=== PATIENT | female | born 1965 | race Caucasian/White ===

== ENCOUNTER → 2017-10-20 | Outpatient (CLI) | payer OTHER ==
[~2017-10-20] MED LIST: ALBU90OI INH; AZIT250 PO; Desyrel50 MG; FLUSAL1005; HYDGUAL120 PO; METTREX2.5; NYSTRITC TOP; ONDA8 PO; Pedi-Dri 100,0060 GM; SERT50; STELARA90 MG/1 ML; [UNRECOGNIZED DRUG - OTHER]
== END | disposition home or self-care (01) ==
LOC: PLD 07:36 → LAB SHORT 07:36
DX: N95.0 Postmenopausal bleeding (principal); Z85.42 Personal history of malignant neoplasm of other parts of uterus; C52 Malignant neoplasm of vagina
CPT/HCPCS: 88305; 88341; 88342

== ENCOUNTER → 2017-10-20 | Outpatient (CLI) | payer OTHER ==
[2017-10-22 13:58] LABS: HPV Genotype 16 Not Detected (NOTDET); HPV Genotype 18 Not Detected (NOTDET)
[2017-10-27 11:17] LABS: HPV High Risk Other Not Detected (NOTDET)
== END | disposition home or self-care (01) ==
LOC: LAB 14:12
PROVIDERS: Obstetrics & Gynecology
DX: Z01.419 Encounter for gynecological examination (general) (routine) without abnormal findings (principal)
CPT/HCPCS: 87624; G0123

== ENCOUNTER 2017-11-03 11:46 | Day surgery (SDC) | payer OTHER ==
[~2017-11-03] VITALS: Ht 157.5 cm; Wt 119.7 kg
[~2017-11-03 11:46] MED LIST changes: -NYSTRITC TOP; -ONDA8 PO
== END 2017-11-03 13:49 | disposition home or self-care (01) ==
LOC: ORSCSDS 11:46
PROVIDERS: Internal Medicine Gastroenterology
PROC: 0DBL8ZX Excision of Transverse Colon, Via Natural or Artificial Opening Endoscopic, Diagnostic (ICD-10-PCS; principal; 2017-11-03 13:00)
PROC: 3E0H8GC Introduction of Other Therapeutic Substance into Lower GI, Via Natural or Artificial Opening Endoscopic (ICD-10-PCS; principal; 2017-11-03 13:00)
PROC: 0DBM8ZX Excision of Descending Colon, Via Natural or Artificial Opening Endoscopic, Diagnostic (ICD-10-PCS; principal; 2017-11-03 13:00)
PROC: 0DBH8ZX Excision of Cecum, Via Natural or Artificial Opening Endoscopic, Diagnostic (ICD-10-PCS; principal; 2017-11-03 13:00)
DX: R10.32 Left lower quadrant pain (principal); K63.5 Polyp of colon; D12.0 Benign neoplasm of cecum; D12.3 Benign neoplasm of transverse colon; K57.30 Diverticulosis of large intestine without perforation or abscess without bleeding; K64.8 Other hemorrhoids; E66.01 Morbid (severe) obesity due to excess calories; Z68.42 Body mass index [BMI] 45.0-49.9, adult; Z79.899 Other long term (current) drug therapy
CPT/HCPCS: 88305; J7120

== ENCOUNTER → 2018-02-02 | Outpatient (CLI) | payer OTHER ==
[2018-02-02 12:54] LABS: Source, Urine Clean Catch
[2018-02-02 13:15] LABS: Bilirubin, Urine Neg (Neg); Blood, Urine 1+ (Neg); Glucose Qualitative, Urine Neg (Neg); Ketones, Urine Neg (Neg); Leukocyte Esterase, Urine 3+ (Neg); Nitrite, Urine Neg (Neg); Protein, Urine 2+ (Neg); Urobilinogen, Urine 1+ (Normal)
[2018-02-02 13:24] LABS: Appearance, Urine Cloudy (Clear); Color, Urine Yellow (P-Yellow); White Blood Cells, Urine 50-100 /hpf (0-5)
[2018-02-02 13:25] LABS: Bacteria Many /hpf; Squamous Epithelial Cells Few /hpf (Few)
== END ==
LOC: LAB SHORT 10:45 → LAB 10:45
PROVIDERS: Radiology Therapeutic Radiology
DX: N89.9 Noninflammatory disorder of vagina, unspecified (principal)
CPT/HCPCS: 81001; 87086

== ENCOUNTER 2018-02-25 00:19 | Day surgery (SDC) | payer OTHER ==
[2018-02-25] MEDS ORDERED: NYSTRITC TOP (10:17)
[2018-02-25] MEDS ORDERED: ONDA8 PO (10:17)
== END 2018-02-25 11:11 | disposition home or self-care (01) ==
LOC: ATC 00:19
DX: C54.1 Malignant neoplasm of endometrium (principal); C77.5 Secondary and unspecified malignant neoplasm of intrapelvic lymph nodes; D70.1 Agranulocytosis secondary to cancer chemotherapy; E78.5 Hyperlipidemia, unspecified; J45.909 Unspecified asthma, uncomplicated; F32.9 Major depressive disorder, single episode, unspecified
CPT/HCPCS: 96360; 96372

== ENCOUNTER 2018-02-26 00:03 | Day surgery (SDC) | payer OTHER ==
[~2018-02-26 00:03] MED LIST changes: +NYSTRITC TOP; +ONDA8 PO
== END 2018-02-26 10:56 | disposition home or self-care (01) ==
LOC: ATC 00:03
DX: C54.1 Malignant neoplasm of endometrium (principal); C77.5 Secondary and unspecified malignant neoplasm of intrapelvic lymph nodes; D70.1 Agranulocytosis secondary to cancer chemotherapy; E78.5 Hyperlipidemia, unspecified; F32.9 Major depressive disorder, single episode, unspecified; F41.9 Anxiety disorder, unspecified
CPT/HCPCS: 96360; 96372; J1447; J7030

== ENCOUNTER 2018-02-27 09:27 | Day surgery (SDC) | payer OTHER | END 2018-02-27 10:35 | disposition home or self-care (01) | LOC: ATC 09:27 | DX: C54.1 Malignant neoplasm of endometrium (principal); E78.5 Hyperlipidemia, unspecified; K21.9 Gastro-esophageal reflux disease without esophagitis; N95.0 Postmenopausal bleeding; Z85.42 Personal history of malignant neoplasm of other parts of uterus | CPT/HCPCS: 96360; 96372; J1447; J7030 ==

== ENCOUNTER 2019-11-29 11:39 | Day surgery (SDC) | payer OTHER ==
[~2019-11-29] VITALS: Ht 157.5 cm; Wt 120.8 kg
[~2019-11-29 11:39] MED LIST changes: +OMEP20ER PO; +SERT25 PO; +TALTZ AUTO80 MG/1 M1 SC; +TRAZ50 PO
== END 2019-11-29 14:14 | disposition home or self-care (01) ==
LOC: ORSCSDS 11:39
PROVIDERS: Internal Medicine Gastroenterology
PROC: 0DBN8ZX Excision of Sigmoid Colon, Via Natural or Artificial Opening Endoscopic, Diagnostic (ICD-10-PCS; principal; 2019-11-29 13:15)
DX: K92.1 Melena (principal); R93.5 Abnormal findings on diagnostic imaging of other abdominal regions, including retroperitoneum; C78.5 Secondary malignant neoplasm of large intestine and rectum; Z85.42 Personal history of malignant neoplasm of other parts of uterus; K57.30 Diverticulosis of large intestine without perforation or abscess without bleeding; K64.8 Other hemorrhoids; I10 Essential (primary) hypertension; E78.5 Hyperlipidemia, unspecified; K21.9 Gastro-esophageal reflux disease without esophagitis; E66.01 Morbid (severe) obesity due to excess calories; Z68.42 Body mass index [BMI] 45.0-49.9, adult; Z79.899 Other long term (current) drug therapy; F41.8 Other specified anxiety disorders; Z86.010 Personal history of colon polyps
CPT/HCPCS: 88305; 88341; 88342; J2704; J7120

== ENCOUNTER 2020-02-15 08:31 | Day surgery (SDC) | payer OTHER ==
[~2020-02-15] VITALS: Ht 157.5 cm; Wt 119.1 kg
[~2020-02-15 08:31] MED LIST changes: +LENVIMA1 EAC3 PO
[2020-02-15] MEDS ORDERED: NAPR500 PO (09:29)
[2020-02-15] MEDS ORDERED: KEYTRUDA100 MG/4 M IV (09:31)
--- NOTE | 2020-02-15 09:34 | NUR ---
Ambulatory in Day Surgery History, Chart, Medications and Allergies reviewed before start of procedure.Lungs clear T/O to Auscultation. Patient confirms NPO status and agrees with scheduled surgery. Patient States Post-Procedure ride home has been arranged.
--- NOTE | 2020-02-15 12:51 | NUR ---
Patient States Post-Procedure ride home has been arranged. Discharged via wheelchair to private car for ride home. Dressing to procedure site clean, dry, intact with no visible drainage, swelling, erythema or bruising noted.
== END 2020-02-15 12:43 | disposition home or self-care (01) ==
LOC: ORSCMMR 08:31 → ORD 10:00 → ORSCMMR 12:43
PROVIDERS: Surgery
PROC: 05HM33Z Insertion of Infusion Device into Right Internal Jugular Vein, Percutaneous Approach (ICD-10-PCS; principal; 2020-02-15 10:00)
PROC: B5131ZA Fluoroscopy of Right Jugular Veins using Low Osmolar Contrast, Guidance (ICD-10-PCS; principal; 2020-02-15 10:00)
DX: C54.1 Malignant neoplasm of endometrium (principal); C77.5 Secondary and unspecified malignant neoplasm of intrapelvic lymph nodes; I10 Essential (primary) hypertension; J45.909 Unspecified asthma, uncomplicated; E66.01 Morbid (severe) obesity due to excess calories; Z68.42 Body mass index [BMI] 45.0-49.9, adult; Z79.899 Other long term (current) drug therapy
CPT/HCPCS: 77001; C1788; J0690; J1100; J1642; J1885; J2250; J2405; J2704; J3010; J7120

== ENCOUNTER → 2020-02-21 | Outpatient (CLI) | payer OTHER ==
[~2020-02-21] MED LIST changes: +KEYTRUDA100 MG/4 M IV; +NAPR500 PO
[2020-02-21 14:47] LABS: BASOPHILS ABSOLUTE AUTO 0.02 K/mm3 (0.00-0.23); BASOPHILS PERCENT AUTO 0 % (0-2); EOSINOPHILS ABSOLUTE AUTO 0.34 K/mm3 (0.00-0.68); EOSINOPHILS PERCENT AUTO 4 % (0-6); Hematocrit 45.5 % (33.0-51.0); Hemoglobin 15.1 g/dL (11.5-16.0); IMMATURE GRAN ABSOLUTE AUTO 0.03 K/mm3 (0.00-0.10); IMMATURE GRAN PERCENT AUTO 0 % (0-1); LYMPHOCYTES ABSOLUTE AUTO 2.41 K/mm3 (0.84-5.20); LYMPHOCYTES PERCENT AUTO 28 % (21-46); MONOCYTES ABSOLUTE AUTO 0.65 K/mm3 (0.16-1.47); MONOCYTES PERCENT AUTO 8 % (4-13); Mean Corpuscular HGB 29.7 pg (26.0-34.0); Mean Corpuscular HGB Conc 33.2 g/dL (31.5-36.5); Mean Corpuscular Volume 90 fL (80-100); NEUTROPHILS ABSOLUTE AUTO 5.22 K/mm3 (1.96-9.15); NEUTROPHILS PERCENT AUTO 60 % (41-73); Platelet Count 115 K/mm3 (150-400); RDW Coefficient Variation 14.1 % (11.7-14.2); RDW Standard Deviation 45.7 fL (35.1-46.3); Red Blood Cell Count 5.08 M/mm3 (3.80-5.20); White Blood Cell Count 8.67 K/mm3 (4.00-11.30)
[2020-02-21 15:02] LABS: Alanine Aminotransfer (ALT/SGP 109 U/L (12-78); Albumin, Blood 3.2 g/dL (3.4-5.0); Albumin/Globulin Ratio 0.8 (0.8-1.8); Alk Phos 147 U/L (50-136); Anion Gap 8 mmol/L (6-16); Aspartate Aminotrans (AST/SGOT 77 U/L (12-37); Bilirubin, Total 1.2 mg/dL (0.1-1.0); Blood Urea Nitrogen 12 mg/dL (8-24); Bun/Creatinine Ratio 14.5 (12.0-20.0); CO2, Blood 28 mmol/L (21-32); Chloride, Blood 106 mmol/L (98-108); Creatinine, Blood 0.83 mg/dL (0.40-1.00); Globulin, Blood 4.1 g/dL (2.2-4.0); Glomerular Filtration Rate >60 (60-); Glucose, Blood 98 mg/dL (70-99); Potassium, Blood 3.7 mmol/L (3.5-5.5); Sodium, Blood 142 mmol/L (136-145); Total Protein, Blood 7.3 g/dL (6.4-8.2)
== END | disposition home or self-care (01) ==
LOC: LAB 14:14 → LAB SHORT 14:14
PROVIDERS: Internal Medicine Hematology & Oncology
DX: C54.1 Malignant neoplasm of endometrium (principal)
CPT/HCPCS: 80053; 85025

== ENCOUNTER 2020-05-06 09:30 | Emergency (ER) | payer OTHER ==
[~2020-05-06] VITALS: Ht 157.5 cm; Wt 104.3 kg
[2020-05-06 11:24] LABS: Hematocrit 49.2 % (33.0-51.0); Hemoglobin 15.7 g/dL (11.5-16.0)
== END 2020-05-06 11:59 | disposition home or self-care (01) ==
LOC: ER 09:30
PROVIDERS: Physician Assistant
DX: R04.0 Epistaxis (principal); Z88.8 Allergy status to other drugs, medicaments and biological substances; Z79.899 Other long term (current) drug therapy
CPT/HCPCS: 85014; 85018; 99283

== ENCOUNTER 2020-07-29 17:59 | Emergency (ER) | payer OTHER ==
[~2020-07-29] VITALS: Ht 157.5 cm; Wt 95.2 kg
[2020-07-29 18:28] LABS: BASOPHILS ABSOLUTE AUTO 0.05 K/mm3 (0.00-0.23); BASOPHILS PERCENT AUTO 1 % (0-2); EOSINOPHILS ABSOLUTE AUTO 0.17 K/mm3 (0.00-0.68); EOSINOPHILS PERCENT AUTO 2 % (0-6); Hematocrit 45.6 % (33.0-51.0); IMMATURE GRAN ABSOLUTE AUTO 0.04 K/mm3 (0.00-0.10); IMMATURE GRAN PERCENT AUTO 0 % (0-1); LYMPHOCYTES ABSOLUTE AUTO 3.54 K/mm3 (0.84-5.20); LYMPHOCYTES PERCENT AUTO 32 % (21-46); MONOCYTES PERCENT AUTO 8 % (4-13); Mean Corpuscular HGB Conc 30.7 g/dL (31.5-36.5); Mean Corpuscular Volume 88 fL (80-100); Mean Platelet Volume 12.7 fL (9.1-12.4); NEUTROPHILS ABSOLUTE AUTO 6.41 K/mm3 (1.96-9.15); NEUTROPHILS PERCENT AUTO 58 % (41-73); Platelet Count 397 K/mm3 (150-400); RDW Coefficient Variation 16.1 % (11.7-14.2); RDW Standard Deviation 51.8 fL (35.1-46.3); Red Blood Cell Count 5.18 M/mm3 (3.80-5.20); White Blood Cell Count 11.11 K/mm3 (4.00-11.30)
[2020-07-29 18:58] LABS: Albumin/Globulin Ratio 0.5 (0.8-1.8); Bilirubin, Total 1.2 mg/dL (0.1-1.0); Bun/Creatinine Ratio 9.5 (12.0-20.0); Calcium, Blood 10.3 mg/dL (8.5-10.1); Creatinine, Blood 1.05 mg/dL (0.40-1.00); Globulin, Blood 5.8 g/dL (2.2-4.0); Potassium, Blood 3.1 mmol/L (3.5-5.5); Total Protein, Blood 8.8 g/dL (6.4-8.2)
[2020-07-29 20:12] LABS: Source, Urine Clean Catch
[2020-07-29 20:14] LABS: Appearance, Urine Hazy (Clear); Blood, Urine 2+ (Neg); Color, Urine Amber (P-Yellow); Glucose Qualitative, Urine Neg (Neg); Ketones, Urine 2+ (Neg); Leukocyte Esterase, Urine 3+ (Neg); Nitrite, Urine Pos (Neg); Protein, Urine 3+ (Neg); Specific Gravity, Urine 1.025 (1.003-1.022); Urobilinogen, Urine 2+ (Normal)
[2020-07-29 20:16] LABS: Bilirubin, Urine 1+ (Neg)
[2020-07-29 20:17] LABS: Mucus Light (0-Heavy)
[2020-07-29 20:18] LABS: Bacteria Mod /hpf; Squamous Epithelial Cells Mod /hpf (Few)
[2020-07-29] MEDS ORDERED: ONDA4 PO (22:38)
[2020-07-29] MEDS ORDERED: CEPH500 PO (22:38)
== END 2020-07-29 22:43 | disposition home or self-care (01) ==
LOC: ER 17:59
PROVIDERS: Emergency Medicine
DX: N39.0 Urinary tract infection, site not specified (principal); Z79.899 Other long term (current) drug therapy; Z88.8 Allergy status to other drugs, medicaments and biological substances
CPT/HCPCS: 36415; 80053; 81001; 83690; 85025; 87086; 96365; 96375; 99284-25; J0696; J2405; J7030

== ENCOUNTER 2022-04-17 08:29 | Day surgery (SDC) | payer OTHER ==
[~2022-04-17] VITALS: Ht 154.9 cm; Wt 108.6 kg
[~2022-04-17 08:29] MED LIST changes: +CEPH500 PO; +ONDA4 PO
--- NOTE | 2022-04-17 09:03 | NUR ---
History, Chart, Medications and Allergies reviewed before start of procedure. Patient States Post-Procedure ride home has been arranged. Patient states colon prep results ARE YELLOW IN TOL[place]ET. STATES SHE WAS ABLE TO DRINK ALL PREP BUT BECAME NAUSEA AT 6 AM AND HAD EMESIS BAG WITH APPROX 50 CC YELLOW EMESIS IN BAG ON ARRIVAL TO DAY SURGERY.
[2022-04-17] MEDS ORDERED: Remicade100 MG IV (09:28)
--- NOTE | 2022-04-17 11:40 | NUR ---
04/17/22 1140 Natalya Barragan History, Chart, Medications and Allergies reviewed before start of procedure. 3-LEAD EKG REVIEWED WITH PHYSICIAN PRIOR TO START OF PROCEDURE. MONITOR INTACT WITH CONTINUOUS PULSE OXIMETRY AND INTERMITTENT BP. O2 VIA N/C INTACT THROUGHOUT SEDATION/PROCEDURE. See Anesthesia record FOR DETAILS.
--- NOTE | 2022-04-17 13:03 | NUR ---
1245- DR SARAVIA AT BEDSIDE TO SPEAK TO PT POST PROCEDURE. 1300- PT TOLERATED JUICE AND ATE PUDDING. Discharge instructions reviewed with patient. Patient verbalizes understanding. Copy given to patient to take home. Discharged via wheelchair to private car for ride home.
== END 2022-04-17 13:00 | disposition home or self-care (01) ==
LOC: ORSCMMR 08:29 → ORD 09:45 → ORSCMMR 13:00
PROVIDERS: Surgery
PROC: 3E0H8GC Introduction of Other Therapeutic Substance into Lower GI, Via Natural or Artificial Opening Endoscopic (ICD-10-PCS; principal; 2022-04-17 09:45)
PROC: 0DBP8ZX Excision of Rectum, Via Natural or Artificial Opening Endoscopic, Diagnostic (ICD-10-PCS; principal; 2022-04-17 09:45)
DX: R19.4 Change in bowel habit (principal); C78.5 Secondary malignant neoplasm of large intestine and rectum; Z85.42 Personal history of malignant neoplasm of other parts of uterus; R93.3 Abnormal findings on diagnostic imaging of other parts of digestive tract; E66.01 Morbid (severe) obesity due to excess calories; Z68.42 Body mass index [BMI] 45.0-49.9, adult; E11.9 Type 2 diabetes mellitus without complications; K21.9 Gastro-esophageal reflux disease without esophagitis; F41.8 Other specified anxiety disorders; Z79.899 Other long term (current) drug therapy
CPT/HCPCS: 82947; 88305; 88341; 88342; J2001; J2704; J7120

== ENCOUNTER 2022-11-15 19:37 | Inpatient (IN) | payer OTHER ==
[~2022-11-15] VITALS: Ht 157.5 cm; Wt 105.2 kg
[~2022-11-15 19:37] MED LIST changes: +Remicade100 MG IV
[2022-11-15 20:20] LABS: BASOPHILS ABSOLUTE AUTO 0.04 K/mm3 (0.00-0.23); BASOPHILS PERCENT AUTO 0 % (0-2); EOSINOPHILS ABSOLUTE AUTO 0.07 K/mm3 (0.00-0.68); EOSINOPHILS PERCENT AUTO 1 % (0-6); Hematocrit 43.8 % (33.0-51.0); IMMATURE GRAN ABSOLUTE AUTO 0.07 K/mm3 (0.00-0.10); IMMATURE GRAN PERCENT AUTO 1 % (0-1); LYMPHOCYTES ABSOLUTE AUTO 1.71 K/mm3 (0.84-5.20); LYMPHOCYTES PERCENT AUTO 15 % (21-46); MONOCYTES ABSOLUTE AUTO 0.56 K/mm3 (0.16-1.47); MONOCYTES PERCENT AUTO 5 % (4-13); Mean Corpuscular HGB 31.1 pg (26.0-34.0); Mean Corpuscular HGB Conc 34.2 g/dL (31.5-36.5); Mean Corpuscular Volume 91 fL (80-100); Mean Platelet Volume 12.7 fL (9.1-12.4); NEUTROPHILS ABSOLUTE AUTO 8.99 K/mm3 (1.96-9.15); NEUTROPHILS PERCENT AUTO 79 % (41-73); Platelet Count 230 K/mm3 (150-400); RDW Coefficient Variation 14.1 % (11.7-14.2); RDW Standard Deviation 45.1 fL (35.1-46.3); Red Blood Cell Count 4.83 M/mm3 (3.80-5.20); White Blood Cell Count 11.44 K/mm3 (4.00-11.30)
[2022-11-15 20:28] LABS: Source, Urine Clean Catch
[2022-11-15 20:31] LABS: Bilirubin, Urine Neg (Neg); Blood, Urine 5+ (Neg); Glucose Qualitative, Urine Neg (Neg); Ketones, Urine 3+ (Neg); Leukocyte Esterase, Urine 3+ (Neg); Nitrite, Urine Neg (Neg); Protein, Urine 3+ (Neg); Specific Gravity, Urine 1.025 (1.003-1.022); Urobilinogen, Urine 1+ (Normal)
[2022-11-15 20:40] LABS: Albumin, Blood 3.5 g/dL (3.4-5.0); Albumin/Globulin Ratio 0.9 (0.8-1.8); Bilirubin, Total 0.6 mg/dL (0.1-1.0); Bun/Creatinine Ratio 14.1 (12.0-20.0); Calcium, Blood 9.4 mg/dL (8.5-10.1); Creatinine, Blood 0.78 mg/dL (0.40-1.00); Globulin, Blood 4.1 g/dL (2.2-4.0); Potassium, Blood 3.7 mmol/L (3.5-5.5); Total Protein, Blood 7.6 g/dL (6.4-8.2)
[2022-11-15 20:46] LABS: Appearance, Urine Hazy (Clear); Bacteria Mod /hpf; Color, Urine Yellow (P-Yellow); Red Blood Cells, Urine TNTC /hpf (0-2); Squamous Epithelial Cells Not Seen /hpf (Few); White Blood Cells, Urine 25-50 /hpf (0-5)
[2022-11-15 20:47] LABS: Amorphous Light (0-Heavy); Mucus Light (0-Heavy)
[2022-11-16 04:19] LABS: International Normalized Ratio 1.09; Prothrombin Time Results 11.4 Sec (9.7-11.5)
[2022-11-16 05:10] LABS: Albumin, Blood 3.3 g/dL (3.4-5.0); Albumin/Globulin Ratio 0.9 (0.8-1.8); Bilirubin, Total 0.5 mg/dL (0.1-1.0); Bun/Creatinine Ratio 16.1 (12.0-20.0); Creatinine, Blood 0.69 mg/dL (0.40-1.00); Globulin, Blood 3.8 g/dL (2.2-4.0); Magnesium, Blood 2.1 mg/dL (1.6-2.4); Potassium, Blood 3.4 mmol/L (3.5-5.5); Total Protein, Blood 7.1 g/dL (6.4-8.2)
--- NOTE | 2022-11-16 05:16 | NUR ---
SHIFT SUMMARY NEW ADMIT TO THE FLOOR AT 0038. PATIENT ABLE TO WALK WITH SBA, REPORTS NO BM OR FLATUS SINCE Wednesday11/13/22. ABD TENDER MODERATELY DISTENDED, HYPOACTIVE BOWEL TONES. PATIENT IS MEDICATED WITH IV ZOFRAN FOR NAUSEA AND MORPHINE FOR PAIN TOELRATES WELL. ABLE TO REST THIS SHIFT. ORIENTED TO CALL LIGHT AND VSS. WILL REPORT TO DAY RN AND MONITOR FOR CHANGES.
--- NOTE | 2022-11-16 10:29 | NUR ---
PATIENT TO DAY SURGERY VIA BED WITH DAY SURGERY RN'S.
--- NOTE | 2022-11-16 10:57 | NUR ---
History, Chart, Medications and Allergies reviewed before start of procedure.Patient confirms NPO status and agrees with scheduled surgery. tPUE AND SCREEN DRAW IN DAY SURGERY WIOTH IV START. LAB PREFORMED TYPE CHECK.
--- NOTE | 2022-11-16 15:32 | NUR ---
PATIENT RETURNED TO ROOM FROM PACU VIA BED. VSS, ON 2L O2 TO MAINTAIN SATS >92%. LUNGS CLEAR. BOWEL SOUNDS HYPOACTIVE, OSTOMY TO LUQ AND X3 LAP SITES TO ABDOMEN. PABLO IN PLACE DRAINING CLEAR YELLOW URINE. PATIENT DENIES PAIN AT THIS TIME. DENIES N/V. CALL LIGHT IN REACH.
--- NOTE | 2022-11-16 17:52 | NUR ---
NO ACUTE CHANGES SINCE RETURN TO ROOM FROM SURGERY. OSTOMY TO LUQ PRODUCED SMALL AMOUNT OF FLATUS. PATIENT REPORTS MINIMAL PAIN, MEDICATED PER EMAR. RESTING IN BED COMFORTABLY OTHERWISE. VSS, ON RA. CALLS APPROPRIATELY, IN REACH. WILL REPORT TO ONCOMING RN AT 1900.
--- NOTE | 2022-11-17 06:26 | NUR ---
Patient is AAOX4, surgical sites are clean dry and intact. Colostomy is putting out minimal liquid fluid. Soft stool output noted in colostomy and gas present in colostomy bag. PRN meds given for pain. Bowel sounds hypoactive. Calixto output yellow and clear. No acute safety concerns at this time.
[2022-11-17 08:11] LABS: Hematocrit 36.7 % (33.0-51.0); Hemoglobin 12.5 g/dL (11.5-16.0); Mean Corpuscular HGB 31.2 pg (26.0-34.0); Mean Corpuscular HGB Conc 34.1 g/dL (31.5-36.5); Mean Corpuscular Volume 92 fL (80-100); Mean Platelet Volume 12.7 fL (9.1-12.4); Platelet Count 184 K/mm3 (150-400); RDW Coefficient Variation 14.8 % (11.7-14.2); Red Blood Cell Count 4.01 M/mm3 (3.80-5.20); White Blood Cell Count 13.68 K/mm3 (4.00-11.30)
[2022-11-17 08:36] LABS: Percent Saturation 8.6 % (15.0-50.0)
[2022-11-17 08:37] LABS: Albumin, Blood 2.7 g/dL (3.4-5.0); Albumin/Globulin Ratio 0.8 (0.8-1.8); Bilirubin, Total 0.7 mg/dL (0.1-1.0); Bun/Creatinine Ratio 19.3 (12.0-20.0); Calcium, Blood 8.4 mg/dL (8.5-10.1); Creatinine, Blood 0.67 mg/dL (0.40-1.00); Globulin, Blood 3.6 g/dL (2.2-4.0); Potassium, Blood 3.2 mmol/L (3.5-5.5); Total Protein, Blood 6.3 g/dL (6.4-8.2)
--- NOTE | 2022-11-17 11:46 | NUR ---
PT GAVE ME VERBAL PERMISSION TO CARE FOR HER TODAY.
--- NOTE | 2022-11-17 19:34 | NUR ---
SHIFT SUMMARY FATIGUED BUT ORIENTED THROUGHOUT DAY. POD 1 LAP COLECTOMY. OSTOMY WITH SMALL AMOUNT SOFT LIQUID BROWN OUTPUT. PABLO DC'D, VOIDING WELL. LOW PO INTAKE OF LIQUID, IV FLUID STILL RUNNING. MEDICATED FOR PAIN PER EMAR. SBA UP TO RECLINER AND BATHROOM. FRIEND VISITOR IN ROOM DURING AFTERNOON. REPORT GIVEN TO POULTRY DEBEAKER RN.
[2022-11-18 03:33] LABS: Hematocrit 34.4 % (33.0-51.0); Hemoglobin 11.7 g/dL (11.5-16.0); Mean Corpuscular HGB 31.3 pg (26.0-34.0); Mean Corpuscular Volume 92 fL (80-100); Mean Platelet Volume 12.5 fL (9.1-12.4); Platelet Count 164 K/mm3 (150-400); RDW Coefficient Variation 14.7 % (11.7-14.2); RDW Standard Deviation 49.1 fL (35.1-46.3); Red Blood Cell Count 3.74 M/mm3 (3.80-5.20); White Blood Cell Count 11.94 K/mm3 (4.00-11.30)
[2022-11-18 03:51] LABS: Albumin, Blood 2.4 g/dL (3.4-5.0); Albumin/Globulin Ratio 0.7 (0.8-1.8); Bilirubin, Total 0.6 mg/dL (0.1-1.0); Bun/Creatinine Ratio 23.4 (12.0-20.0); Calcium, Blood 8.3 mg/dL (8.5-10.1); Creatinine, Blood 0.56 mg/dL (0.40-1.00); Globulin, Blood 3.5 g/dL (2.2-4.0); Potassium, Blood 3.4 mmol/L (3.5-5.5); Total Protein, Blood 5.9 g/dL (6.4-8.2)
--- NOTE | 2022-11-18 04:16 | NUR ---
SHIFT SUMMARY PT RESTED WELL. NO ACUTE CHANGES. 1 ROXICODONE FOR PAIN MANAGEMENT. LAP SITES TO ABD REMAIN CDI. COLOSTOMY WITH FLATUS + LIQUID BROWN STOOL PRESENT. CONTINUING OSTOMY EDUCATION WITH PT. 1 SBA TO RESTROOM. VOIDING. IVF INFUSING PER ORDERS. ENCOURAGING PO FLUIDS. PT USES CALL LIGHT APPROPRIATELY.
--- NOTE | 2022-11-18 17:10 | NUR ---
SHIFT SUMMARY PATIENT ALERT AND ORIENTED WHEN AWAKE. TAKES FREQUENT NAPS. SBA TO AMBULATE IN HALLS AND TO BATHROOM. ABD LAP SITES X3 C/D/I. OSTOMY WITH MODERATE SOFT BROWN STOOL OUTPUT PLUS GAS. LOW PO INTAKE OF FLUIDS, LOW URINE OUTPUT. LR IV FLUID KEPT RUNNING. TOLERATING SMALL AMOUNT OF REG DIET. MEDICATED FOR PAIN PER EMAR. MARKETING SECRETARY CONSULTED THIS SHIFT.
--- NOTE | 2022-11-19 05:15 | NUR ---
SHIFT SUMMARY PT HAS RESTED A GOOD PORITION OF SHIFT. OSTOMY/LAP SITE DRESSINGS HAD TO BE CHANGED TWICE THIS SHIFT DUE TO LEAKING. OSTOMY HAS HIGH OUTPUT THIS SHIFT, LIQUID BROWN STOOL. PT APPETITE IS A LITTLE BETTER, SHE WAS ABLE TO TOLERATE ORANGE JELLO AND A CHOCOLATE MILK. PT IS VOIDING, ABOUT 100 MLS MEASURED IN HAT, BUT PT IS INCONTINENT IN ATTENDS SO SHE IS VOIDING A LOT MORE THAN THAT. IVF CONTINUED, VITALS STABLE. PT MEDICATED FOR PAIN PRN PER EMAR WITH EFFECT. BED IN LOWEST POSITON, CALL LIGHT WITHIN REACH.
--- NOTE | 2022-11-19 19:18 | NUR ---
SHIFT SUMMARY PATIENT ALERT AND ORIENTED. INDEPENDENT IN ROOM. TOLERATING SMALL AMOUNT OF REGULAR DIET, PO INTAKE OF FLUIDS INCREASED TODAY. SALINE LOCKED. VOIDING WELL. ABD LAP SITES C/D/I. LUQ OSTOMY WITH MODERATE LIQUID BROWN STOOL OUTPUT AND GAS. PATIENT ENGAGED WITH OSTOMY TEACHING, ABLE TO EMPTY OSTOMY INDEPENDENTLY. READ THROUGH OSTOMY EDUCATION KIT THIS SHIFT. REPORTS ABD PAIN TOLERABLE AND DECLINED NEED FOR PAIN MEDS. PLAN FOR DISCHARGE HOME TOMORROW 11/20/22. REPORT GIVEN TO DIVE MASTER RN.
[2022-11-20 04:06] LABS: Hematocrit 33.1 % (33.0-51.0); Hemoglobin 11.5 g/dL (11.5-16.0); Mean Corpuscular HGB 31.4 pg (26.0-34.0); Mean Corpuscular HGB Conc 34.7 g/dL (31.5-36.5); Mean Corpuscular Volume 90 fL (80-100); Mean Platelet Volume 12.1 fL (9.1-12.4); Platelet Count 177 K/mm3 (150-400); RDW Coefficient Variation 14.4 % (11.7-14.2); RDW Standard Deviation 47.2 fL (35.1-46.3); Red Blood Cell Count 3.66 M/mm3 (3.80-5.20); White Blood Cell Count 8.36 K/mm3 (4.00-11.30)
[2022-11-20 05:33] LABS: Albumin, Blood 2.3 g/dL (3.4-5.0); Albumin/Globulin Ratio 0.7 (0.8-1.8); Bilirubin, Total 0.4 mg/dL (0.1-1.0); Bun/Creatinine Ratio 15.6 (12.0-20.0); Calcium, Blood 8.7 mg/dL (8.5-10.1); Creatinine, Blood 0.51 mg/dL (0.40-1.00); Globulin, Blood 3.5 g/dL (2.2-4.0); Percent Saturation 15.2 % (15.0-50.0); Potassium, Blood 2.9 mmol/L (3.5-5.5); Total Protein, Blood 5.8 g/dL (6.4-8.2)
[2022-11-20] MEDS ORDERED: DULCOLAX400 MG/51 PO (11:02)
[2022-11-20] MEDS ORDERED: Percocet 5-3251 EACH PO (11:03)
--- NOTE | 2022-11-20 15:16 | NUR ---
ASSUMED CARE AT ABOUT 1500. REPORT RECEIVED FROM IFEANYI HERNANDEZ. DISCHARGE: PACKET PRINTED AND PT EDUCATED. OSTOMY APPLIANCES GIVEN. PT LEFT UNIT AT ABOUT 1515 VIA WHEELCHAIR WITH THIS RN
--- NOTE | 2022-11-20 15:19 | NUR ---
IV POTASSIUM INFUSED, IV DC'D WNL, TIP INTACT
== END 2022-11-20 15:10 | disposition home or self-care (01) | DRG 330 ==
LOC: ER 19:37 → SURS 23:58
PROVIDERS: Internal Medicine; Student in an Organized Health Care Education/Training Program; Surgery; ADMIT Student in an Organized Health Care Education/Training Program
PROC: 0DBU4ZZ Excision of Omentum, Percutaneous Endoscopic Approach (ICD-10-PCS; 2022-11-16)
PROC: 0DNU4ZZ Release Omentum, Percutaneous Endoscopic Approach (ICD-10-PCS; 2022-11-16)
PROC: 0D1L4Z4 Bypass Transverse Colon to Cutaneous, Percutaneous Endoscopic Approach (ICD-10-PCS; principal; 2022-11-16 10:30)
DX: C78.5 Secondary malignant neoplasm of large intestine and rectum (principal); K92.1 Melena; Z68.41 Body mass index [BMI] 40.0-44.9, adult; C54.1 Malignant neoplasm of endometrium; E87.6 Hypokalemia; D63.8 Anemia in other chronic diseases classified elsewhere; E11.9 Type 2 diabetes mellitus without complications; E66.9 Obesity, unspecified; F32.A Depression, unspecified; K66.0 Peritoneal adhesions (postprocedural) (postinfection); K59.00 Constipation, unspecified; I10 Essential (primary) hypertension; Z88.8 Allergy status to other drugs, medicaments and biological substances; Z79.899 Other long term (current) drug therapy; Z90.710 Acquired absence of both cervix and uterus; Z98.890 Other specified postprocedural states; Z92.21 Personal history of antineoplastic chemotherapy; Z90.49 Acquired absence of other specified parts of digestive tract; Z92.25 Personal history of immunosuppression therapy
CPT/HCPCS: 36415; 74177; 80053; 81001; 82378; 82728; 82947; 83540; 83550; 83735; 85025; 85027; 85610; 86850; 86900; 86901; 87086; 88304; 93005; 93010; 96365-59; 96375; 99285-25; A9270; C9113; J0696; J1100; J2250; J2270; J2370; J2405; J2543; J2704; J3010; J3480; J7030; J7050; J7120; Q9967

== ENCOUNTER → 2022-12-09 | Outpatient (CLI) | payer OTHER ==
[~2022-12-09] MED LIST changes: +DULCOLAX400 MG/51 PO; +Percocet 5-3251 EACH PO
[2022-12-09 14:26] LABS: BASOPHILS ABSOLUTE AUTO 0.02 K/mm3 (0.00-0.23); BASOPHILS PERCENT AUTO 0 % (0-2); EOSINOPHILS PERCENT AUTO 0 % (0-6); Hematocrit 41.1 % (33.0-51.0); Hemoglobin 13.5 g/dL (11.5-16.0); IMMATURE GRAN ABSOLUTE AUTO 0.05 K/mm3 (0.00-0.10); IMMATURE GRAN PERCENT AUTO 0 % (0-1); LYMPHOCYTES ABSOLUTE AUTO 0.99 K/mm3 (0.84-5.20); LYMPHOCYTES PERCENT AUTO 8 % (21-46); MONOCYTES PERCENT AUTO 1 % (4-13); Mean Corpuscular HGB 29.7 pg (26.0-34.0); Mean Corpuscular HGB Conc 32.8 g/dL (31.5-36.5); Mean Corpuscular Volume 90 fL (80-100); NEUTROPHILS ABSOLUTE AUTO 11.98 K/mm3 (1.96-9.15); NEUTROPHILS PERCENT AUTO 91 % (41-73); Platelet Count 261 K/mm3 (150-400); RDW Coefficient Variation 13.6 % (11.7-14.2); RDW Standard Deviation 44.7 fL (35.1-46.3); Red Blood Cell Count 4.55 M/mm3 (3.80-5.20); White Blood Cell Count 13.14 K/mm3 (4.00-11.30)
[2022-12-09 14:27] LABS: Albumin, Blood 3.2 g/dL (3.4-5.0); Albumin/Globulin Ratio 0.7 (0.8-1.8); Bilirubin, Total 0.4 mg/dL (0.1-1.0); Bun/Creatinine Ratio 18.2 (12.0-20.0); Calcium, Blood 9.9 mg/dL (8.5-10.1); Creatinine, Blood 0.77 mg/dL (0.40-1.00); Globulin, Blood 4.8 g/dL (2.2-4.0); Potassium, Blood 3.8 mmol/L (3.5-5.5)
[2022-12-09 14:38] LABS: Mean Platelet Volume 13.6 fL (9.1-12.4)
== END | disposition home or self-care (01) ==
LOC: LAB SHORT 13:25
PROVIDERS: Internal Medicine Hematology & Oncology
DX: C54.1 Malignant neoplasm of endometrium (principal)
CPT/HCPCS: 80053; 85025

== ENCOUNTER 2023-01-27 17:30 | Emergency (ER) | payer OTHER ==
[~2023-01-27] VITALS: Ht 157.5 cm; Wt 97.5 kg
[2023-01-27 17:45] VITALS: BP 122/62
== END 2023-01-27 19:10 | disposition home or self-care (01) ==
LOC: ER 17:30
DX: R11.2 Nausea with vomiting, unspecified (principal); R21 Rash and other nonspecific skin eruption; T45.1X5A Adverse effect of antineoplastic and immunosuppressive drugs, initial encounter; C54.1 Malignant neoplasm of endometrium; Z85.42 Personal history of malignant neoplasm of other parts of uterus; Z88.8 Allergy status to other drugs, medicaments and biological substances; Z91.040 Latex allergy status; X58.XXXA Exposure to other specified factors, initial encounter
CPT/HCPCS: 99283

== ENCOUNTER 2023-09-09 09:02 | Day surgery (SDC) | payer OTHER ==
[2023-09-09] VITALS (8 sets, daily range): BP systolic 106–127; BP diastolic 51–74
[~2023-09-09 09:02] MED LIST changes: +CHEMO
--- NOTE | 2023-09-09 09:56 | NUR ---
Ambulatory in Day Surgery History, Chart, Medications and Allergies reviewed before start of procedure. Pre-Op teaching done. Pt verbalizes understanding. Patient States Post-Procedure ride home has been arranged.
--- NOTE | 2023-09-09 12:20 | NUR ---
ASSUMED CARE. PT IN BED EATING SOLIDS AND JUICE, TOLERATING WELL. PT DENIES PAIN AT THIS TIME.
--- NOTE | 2023-09-09 12:32 | NUR ---
ICE PACK MADE AND PLACED ON INCISION. INCISION IS C/D/I AND SHOWED TO PT. Discharge instructions reviewed with patient. Patient verbalizes understanding. Copy given to patient to take home. Patient States Post-Procedure ride home has been arranged.
--- NOTE | 2023-09-09 13:00 | NUR ---
Discharged via wheelchair to private car for ride home.
== END 2023-09-09 13:01 | disposition home or self-care (01) ==
LOC: ORSCMMR 09:02 → ORD 10:45 → ORSCMMR 13:01
PROVIDERS: Surgery
PROC: 0JH63WZ Insertion of Totally Implantable Vascular Access Device into Chest Subcutaneous Tissue and Fascia, Percutaneous Approach (ICD-10-PCS; principal; 2023-09-09 10:45)
PROC: 05HM33Z Insertion of Infusion Device into Right Internal Jugular Vein, Percutaneous Approach (ICD-10-PCS; principal; 2023-09-09 10:45)
PROC: B543ZZA Ultrasonography of Right Jugular Veins, Guidance (ICD-10-PCS; principal; 2023-09-09 10:45)
DX: C54.1 Malignant neoplasm of endometrium (principal); E11.9 Type 2 diabetes mellitus without complications; K21.9 Gastro-esophageal reflux disease without esophagitis; F41.8 Other specified anxiety disorders; E66.9 Obesity, unspecified; Z68.38 Body mass index [BMI] 38.0-38.9, adult; E78.5 Hyperlipidemia, unspecified; I10 Essential (primary) hypertension; Z79.899 Other long term (current) drug therapy
CPT/HCPCS: 77001; 82947; A9270; C1788; J0690; J1100; J1642; J2250; J2371; J2405; J2704; J3010; J7120

== ENCOUNTER → 2024-04-05 | Outpatient (CLI) | payer OTHER ==
[2024-04-05 15:22] LABS: Albumin/Globulin Ratio 0.7 (0.8-1.8); Bilirubin, Total 0.2 mg/dL (0.1-1.0); Bun/Creatinine Ratio 12.5 (12.0-20.0); Calcium, Blood 9.1 mg/dL (8.5-10.1); Creatinine, Blood 0.88 mg/dL (0.40-1.00); Globulin, Blood 4.2 g/dL (2.2-4.0); Potassium, Blood 3.5 mmol/L (3.5-5.5); Total Protein, Blood 7.2 g/dL (6.4-8.2)
== END ==
LOC: LAB 13:52 → LAB SHORT 13:52
PROVIDERS: Registered Nurse Oncology
DX: C54.1 Malignant neoplasm of endometrium (principal)
CPT/HCPCS: 80053

== ENCOUNTER 2025-07-31 03:02 | Inpatient (IN) | payer OTHER ==
[2025-07-31] VITALS (12 sets, daily range): BP systolic 90–127; BP diastolic 48–97
[~2025-07-31] VITALS: Ht 154.9 cm; Wt 98.0 kg
[2025-07-31] MEDS ORDERED: NS 1,000 ML IV SCH ×2 (03:10→14:50)
[2025-07-31] MEDS ORDERED: Ondansetron HCl 2 MG / ML 2ML Vial IV ONE (03:10)
[2025-07-31 03:34] LABS: BASOPHILS ABSOLUTE AUTO 0.04 K/mm3 (0.00-0.23); BASOPHILS PERCENT AUTO 0 % (0-2); EOSINOPHILS ABSOLUTE AUTO 0.23 K/mm3 (0.00-0.68); EOSINOPHILS PERCENT AUTO 2 % (0-6); Hematocrit 29.3 % (33.0-51.0); Hemoglobin 9.5 g/dL (11.5-16.0); IMMATURE GRAN ABSOLUTE AUTO 0.06 K/mm3 (0.00-0.10); IMMATURE GRAN PERCENT AUTO 0 % (0-1); LYMPHOCYTES ABSOLUTE AUTO 3.88 K/mm3 (0.84-5.20); LYMPHOCYTES PERCENT AUTO 27 % (21-46); MONOCYTES ABSOLUTE AUTO 1.66 K/mm3 (0.16-1.47); MONOCYTES PERCENT AUTO 11 % (4-13); Mean Corpuscular HGB Conc 32.4 g/dL (31.5-36.5); Mean Corpuscular Volume 101 fL (80-100); NEUTROPHILS ABSOLUTE AUTO 8.76 K/mm3 (1.96-9.15); NEUTROPHILS PERCENT AUTO 60 % (41-73); NRBC ABSOLUTE 0.00 K/mm3 (0.00-0.02); NRBC Auto 0.0 /100 WBC (0.0-0.2); Platelet Count 133 K/mm3 (150-400); RDW Coefficient Variation 18.6 % (11.7-14.2); RDW Standard Deviation 68.8 fL (35.1-46.3)
[2025-07-31 03:54] LABS: Alanine Aminotransfer (ALT/SGP 31.0 U/L (12-78); Albumin, Blood 1.6 g/dL (3.4-5.0); Albumin/Globulin Ratio 0.3 (0.8-1.8); Anion Gap 13.0 mmol/L (3-11); Aspartate Aminotrans (AST/SGOT 51.0 U/L (12-37); Bilirubin, Total 1.0 mg/dL (0.1-1.0); Blood Urea Nitrogen 20.0 mg/dL (8-24); CO2, Blood 21.0 mmol/L (21-32); Calcium, Blood 8.4 mg/dL (8.5-10.1); Chloride, Blood 102.0 mmol/L (98-108); Creatinine, Blood 1.33 mg/dL (0.40-1.00); Globulin, Blood 5.0 g/dL (2.2-4.0); Glucose, Blood 239.0 mg/dL (70-99); Magnesium, Blood 1.9 mg/dL (1.6-2.4); Phosphorus, Blood 2.7 mg/dL (2.5-4.9); Potassium, Blood 3.1 mmol/L (3.5-5.5); Sodium, Blood 133.0 mmol/L (136-145); Total Protein, Blood 6.6 g/dL (6.4-8.2)
[2025-07-31] MEDS ORDERED: Ampicillin Sod/Sulbactam Sod 3 GM in NS 100 ML IV ONE (05:20)
[2025-07-31 05:33] LABS: Source, Urine Clean Catch
[2025-07-31 05:35] LABS: Bilirubin, Urine Neg (Neg); Color, Urine Yellow (P-Yellow); Glucose Qualitative, Urine Neg (Neg); Ketones, Urine Neg (Neg); Leukocyte Esterase, Urine 2+ (Neg); Protein, Urine 2+ (Neg); Specific Gravity, Urine 1.015 (1.003-1.022); Urobilinogen, Urine 1+ (Normal)
[2025-07-31 05:48] LABS: Red Blood Cells, Urine 0-2 /hpf (0-2)
[2025-07-31] MEDS ORDERED: Magnesium Sulf 2 GM/Water 50ML 50 ML IV ONE (05:50)
[2025-07-31] MEDS ORDERED: Potassium Chl 20MEQ/Water100ML 100 ML IV SCH (05:50)
[2025-07-31] MEDS ORDERED: FentaNYL Citrate 50 MCG/ML 2 ML Injection IV PRN (06:20)
[2025-07-31] MEDS ORDERED: FLU VACC TS2025-26(6MOS UP)/PF 45 MCG/0.5 ML SYRINGE IM SCH (06:20)
[2025-07-31] MEDS ORDERED: NS 1,000 ML IV ONE (06:20)
[2025-07-31] MEDS ORDERED: Ondansetron HCl 2 MG / ML 2ML Vial IV PRN ×2 (06:20→14:55)
[2025-07-31] MEDS ORDERED: CefTRIAXone Sodium 1,000 MG in NS 100 ML IV SCH (06:41)
[2025-07-31 06:44] LABS: Prothrombin Time Results 17.6 Sec (9.7-11.5)
[2025-07-31] MEDS ORDERED: Albumin (Human) 25gm/100ml 100 ML IV ONE (07:30)
[2025-07-31] MEDS ORDERED: Insulin Human Lispro 100 Units/ML 3ML Syringe SC SCH (07:30)
[2025-07-31 08:04] LABS: Hematocrit 24.5 % (33.0-51.0); Hemoglobin 7.9 g/dL (11.5-16.0)
--- NOTE | 2025-07-31 08:23 | NUR ---
[facility] [place] Report from security shift manager nurse w/ report of pt arriving to PCU from ER at approx 0630. Pt A&O x4. VSS. Spo2 > 92% on RA. Monitor showing ST, HR 100-110s. Pt w/ dark maroon liquid output via colostomy. Colostomy w/ noted prolapsed stoma. MD Amaya notified of pt consult. MD Amaya w/ orders for pt to start suprep stat & drink water until NPO at 1300. Pt understanding & agreeable.
--- NOTE | 2025-07-31 10:04 | NUR ---
Bottle #2 of 2, suprep initiated at this time.
[2025-07-31 10:21] LABS: Hematocrit 21.2 % (33.0-51.0); Hemoglobin 7.0 g/dL (11.5-16.0)
[2025-07-31] MEDS ORDERED: NS 250 ML IV PRN (10:30)
[2025-07-31 11:11] LABS: Ferritin, Serum 130.0 ng/mL (8-252); Total Iron Binding Capacity 136.0 ug/dL (250-450)
[2025-07-31] MEDS ORDERED: Insulin Regular 100 UNIT/ML 10ML Vial SC SCH ×2 (12:00→21:00)
--- NOTE | 2025-07-31 14:41 | NUR ---
Update / Gone for Procedure Pt w/ episode of n/v w/ dark yellow/green liquid emesis. PRN IV zofran given per emar w/ no further emesis. Pt did not complete bottle #2 of lee prep. MD Amaya aware. Pt w/ liquid red output via colostomy. Blood infusing via P.G. Pt gone for scope @ approx 1430 with blood & NS gtt still infusing.
--- NOTE | 2025-07-31 14:58 | NUR ---
PT TRANSPORTED TO [facility] VIA GURNEY. AGREES WITH PLANNED PROCEDURE. NPO FROM PREP X2 HOURS. STOOL COOLER MAROON IN RECTAL TUBE BAG. History, Chart, Medications and Allergies reviewed before start of procedure.
[2025-07-31] MEDS ORDERED: Albuterol 2.5 MG/3 ML VIAL INH PRN (15:00)
--- NOTE | 2025-07-31 15:18 | NUR ---
07/31/25 1518 Marylu Shore History, Chart, Medications and Allergies reviewed before start of procedure. MONITOR INTACT WITH CONTINUOUS PULSE OXIMETRY, CONTINUOUS END TITAL CO2, 3-LEAD EKG AND INTERMITTENT BLOOD PRESSURE. 3-LEAD EKG REVIEWED WITH PHYSICIAN PRIOR TO START OF PROCEDURE. O2 VIA POM INTACT THROUGHOUT SEDATION/PROCEDURE. SILVIA LOUVER MORTISER OPERATOR PROVIDING ANESTHESIA CARE, SEE ANESTHESIA RECORD.
--- NOTE | 2025-07-31 16:12 | NUR ---
Return from Procedure Pt back from upper & lower scope. Report from day surgery nurses reporting blood finished transfusing @ 1515. MD Amaya to bedside for discussion with pt relaying procedure findings. Pt A&O x4. VSS. Spo2 > 92% on RA. Monitor showing ST, HR 100-110.
[2025-07-31 16:24] LABS: Hematocrit 23.7 % (33.0-51.0); Hemoglobin 7.7 g/dL (11.5-16.0)
[2025-07-31 17:06] LABS: Anion Gap 11.0 mmol/L (3-11); Blood Urea Nitrogen 20.0 mg/dL (8-24); CO2, Blood 23.0 mmol/L (21-32); Calcium, Blood 7.7 mg/dL (8.5-10.1); Chloride, Blood 109.0 mmol/L (98-108); Creatinine, Blood 1.4 mg/dL (0.40-1.00); Glucose, Blood 154.0 mg/dL (70-99); Potassium, Blood 3.8 mmol/L (3.5-5.5); Sodium, Blood 139.0 mmol/L (136-145)
--- NOTE | 2025-07-31 18:46 | NUR ---
End of Shift Pt continues to be A&O x4. VSS. Spo2 > 92% on RA. Monitor showing ST, HR 100-110s. Pt gone for upper & lower scopes today w/ Dr Amaya. to bedside for discussion of results w/ pt after. Pt recieved 1 unit pRBCs this shift. Colostomy w/ 100mls liquid red output emptied at end of shift following procedure. Pt denying pain/discomfort, n/v.
[2025-07-31 21:00] LABS: Hematocrit 22.7 % (33.0-51.0); Hemoglobin 7.6 g/dL (11.5-16.0)
[2025-08-01] VITALS (17 sets, daily range): BP systolic 89–122; BP diastolic 37–91
[2025-08-01 02:25] LABS: Hematocrit 21.3 % (33.0-51.0); Hemoglobin 7.2 g/dL (11.5-16.0)
[2025-08-01] MEDS ORDERED: NS 1,000 ML BAG IR ONE (04:40)
[2025-08-01 04:42] LABS: BASOPHILS ABSOLUTE AUTO 0.04 K/mm3 (0.00-0.23); BASOPHILS PERCENT AUTO 0 % (0-2); EOSINOPHILS ABSOLUTE AUTO 0.08 K/mm3 (0.00-0.68); EOSINOPHILS PERCENT AUTO 0 % (0-6); Hematocrit 20.1 % (33.0-51.0); Hemoglobin 6.6 g/dL (11.5-16.0); IMMATURE GRAN ABSOLUTE AUTO 0.12 K/mm3 (0.00-0.10); IMMATURE GRAN PERCENT AUTO 1 % (0-1); LYMPHOCYTES ABSOLUTE AUTO 3.97 K/mm3 (0.84-5.20); LYMPHOCYTES PERCENT AUTO 22 % (21-46); MONOCYTES ABSOLUTE AUTO 1.78 K/mm3 (0.16-1.47); MONOCYTES PERCENT AUTO 10 % (4-13); Mean Corpuscular HGB Conc 32.8 g/dL (31.5-36.5); Mean Corpuscular Volume 97 fL (80-100); NEUTROPHILS ABSOLUTE AUTO 12.45 K/mm3 (1.96-9.15); NEUTROPHILS PERCENT AUTO 68 % (41-73); NRBC ABSOLUTE 0.00 K/mm3 (0.00-0.02); NRBC Auto 0.0 /100 WBC (0.0-0.2); Platelet Count 114 K/mm3 (150-400); RDW Coefficient Variation 21.2 % (11.7-14.2); RDW Standard Deviation 72.3 fL (35.1-46.3)
[2025-08-01] MEDS ORDERED: Tranexamic Acid 100 ML IV SCH (04:50)
[2025-08-01] MEDS ORDERED: NS 250 ML IV ONE (04:55)
[2025-08-01 05:39] LABS: Alanine Aminotransfer (ALT/SGP 22.0 U/L (12-78); Albumin, Blood 1.6 g/dL (3.4-5.0); Albumin/Globulin Ratio 0.5 (0.8-1.8); Anion Gap 15.0 mmol/L (3-11); Aspartate Aminotrans (AST/SGOT 38.0 U/L (12-37); Bilirubin, Total 1.2 mg/dL (0.1-1.0); Blood Urea Nitrogen 21.0 mg/dL (8-24); CO2, Blood 18.0 mmol/L (21-32); Calcium, Blood 7.9 mg/dL (8.5-10.1); Chloride, Blood 107.0 mmol/L (98-108); Creatinine, Blood 1.48 mg/dL (0.40-1.00); Globulin, Blood 3.0 g/dL (2.2-4.0); Glucose, Blood 209.0 mg/dL (70-99); Potassium, Blood 3.6 mmol/L (3.5-5.5); Sodium, Blood 136.0 mmol/L (136-145)
[2025-08-01 05:40] LABS: Total Protein, Blood 4.6 g/dL (6.4-8.2)
--- NOTE | 2025-08-01 07:45 | NUR ---
NOC SHIFT SUMMARY ALESIA REMAINED ORIENTED X4, ABLE TO MAKE NEEDS KNOWN. VITALS WITH HR IN 110S-120S AND BP ON SOFT END OF NORMAL. DENIES SYMPTOMS. MD AWARE. STOMA WITH SMALL OUTPUT X2 OF SS DRAINAGE. AROUND 0400 PT CALLED OUT AND HAD "BURST" COLOSTOMY BAG WITH BLOOD AND CLOTS NOTED. 500 EMPTIED WITH LARGE CLOTS. NOTED SPURT OF BLOOD FROM BASE OF STOMA, PRESSURE APPLIED AND RESPIRATORY MANAGERIFEANYI Cardona, AND DR. SINCLAIR TO BEDSIDE. STAT LABS DRAWN, PT REPORTS DIZZINESS. 2U PRBC ORDERED, IVF BOLUS, AND TXA. TOLERATED WELL. NAUSEA X1. HEMOSTASIS ACHIEVED AND BAG CHANGED. 1U PRBC COMPLETED THIS AM AND PT TOLERATED WELL
[2025-08-01 12:32] LABS: Hematocrit 28.6 % (33.0-51.0); Hemoglobin 9.7 g/dL (11.5-16.0)
[2025-08-01 18:14] LABS: Hematocrit 28.4 % (33.0-51.0); Hemoglobin 9.7 g/dL (11.5-16.0)
--- NOTE | 2025-08-01 18:30 | NUR ---
End of Shift Pt A&O x4. BP soft, but VSS. Spo2 > 92% on RA. Monitor showing ST, HR 100-110s. Pt reporting "it's not good" upon this nurse arrival this morning. Pt relaying the events of the night: "there was more bleeding & the doctor talked to me about hospice." Pt w/ flat affect today & requesting lights out for her to "nap" multiple occasions today. Pt brown/green liquid output in colostomy & then dark brown liquid output in colostomy. Pt reporting preference to transfer to [facility] if bleeding does resume/worsen. Pt w/ episode of emesis this evening. PT medicated w/ PRN IV zofran per eMAR w/ pt report of improvement & stating "I think it's all just nerves. I have a lot on my mind." Pt refused dinner & insulin this evening, requesting to to be left alone until guests "come to bless" her this evening.
[2025-08-01] MEDS ORDERED: Lactobacil 2-S.Thermo-Bifido 1 1 Cap PO SCH (21:00)
[2025-08-02] VITALS (7 sets, daily range): BP systolic 94–195; BP diastolic 51–98
[2025-08-02 00:45] LABS: Hematocrit 25.7 % (33.0-51.0); Hemoglobin 8.7 g/dL (11.5-16.0)
[2025-08-02 04:12] LABS: BASOPHILS ABSOLUTE AUTO 0.03 K/mm3 (0.00-0.23); BASOPHILS PERCENT AUTO 0 % (0-2); EOSINOPHILS ABSOLUTE AUTO 0.11 K/mm3 (0.00-0.68); EOSINOPHILS PERCENT AUTO 1 % (0-6); Hematocrit 24.9 % (33.0-51.0); Hemoglobin 8.6 g/dL (11.5-16.0); IMMATURE GRAN ABSOLUTE AUTO 0.14 K/mm3 (0.00-0.10); IMMATURE GRAN PERCENT AUTO 1 % (0-1); LYMPHOCYTES ABSOLUTE AUTO 3.73 K/mm3 (0.84-5.20); LYMPHOCYTES PERCENT AUTO 21 % (21-46); MONOCYTES ABSOLUTE AUTO 1.86 K/mm3 (0.16-1.47); MONOCYTES PERCENT AUTO 10 % (4-13); Mean Corpuscular HGB Conc 34.5 g/dL (31.5-36.5); NEUTROPHILS ABSOLUTE AUTO 12.23 K/mm3 (1.96-9.15); NEUTROPHILS PERCENT AUTO 68 % (41-73); NRBC ABSOLUTE 0.00 K/mm3 (0.00-0.02); NRBC Auto 0.0 /100 WBC (0.0-0.2); Platelet Count 103 K/mm3 (150-400); RDW Coefficient Variation 19.9 % (11.7-14.2); RDW Standard Deviation 59.3 fL (35.1-46.3)
[2025-08-02 04:13] LABS: Mean Corpuscular Volume 90 fL (80-100)
[2025-08-02 06:07] LABS: Anion Gap 8.0 mmol/L (3-11); Blood Urea Nitrogen 27.0 mg/dL (8-24); CO2, Blood 24.0 mmol/L (21-32); Calcium, Blood 8.0 mg/dL (8.5-10.1); Chloride, Blood 106.0 mmol/L (98-108); Creatinine, Blood 1.71 mg/dL (0.40-1.00); Glucose, Blood 146.0 mg/dL (70-99); Potassium, Blood 3.3 mmol/L (3.5-5.5); Sodium, Blood 135.0 mmol/L (136-145)
--- NOTE | 2025-08-02 06:14 | NUR ---
SHIFT SUMMARY PT ALERT ORIENTED X 4 ABLE TO VERBALIZE NEEDS HAS BEEN IN BED THIS SHIFT BUT IS REPOSITIONED Q2HR. REMAINS ON TELE AT ST AT 102. SHE HAS A PUREWICK DRAINING DARK KRISTY URINE HER COLOSTOMY BAG HAD NO BLOOD IN IT IT WAS BROWN WITH SOME THICKNESS TO IT. SHE DID HAVE A SMALL AMOUNT OF BLOOD FROM HER RECTUM. REMAINS ON LR AT 100. HER POTASSIUM THIS AM WAS 3.3. REMAINS ON ROCEPHIN ORDERED SHE HAS A MEDIPORT TO HER RT CHEST AND A POWERGLIDE TO HER RT UPPER ARM. VSS SATING AT 100 ON RA. SHE REMAINS WITH A PROLAPSED STOMA. NO C/O PAIN THIS SHIFT. RESTING IN BED AT THIS TIME WITH CALL LIGHT IN REACH
[2025-08-02] MEDS ORDERED: Potassium Chl 20MEQ/Water100ML 100 ML IV STA (07:37)
[2025-08-02 16:25] LABS: Hematocrit 25.2 % (33.0-51.0); Hemoglobin 8.4 g/dL (11.5-16.0)
[2025-08-02 16:37] LABS: Anion Gap 12.0 mmol/L (3-11); Blood Urea Nitrogen 29.0 mg/dL (8-24); CO2, Blood 21.0 mmol/L (21-32); Calcium, Blood 8.3 mg/dL (8.5-10.1); Chloride, Blood 107.0 mmol/L (98-108); Creatinine, Blood 1.75 mg/dL (0.40-1.00); Glucose, Blood 173.0 mg/dL (70-99); Potassium, Blood 3.6 mmol/L (3.5-5.5); Sodium, Blood 136.0 mmol/L (136-145)
--- NOTE | 2025-08-02 16:38 | NUR ---
End of Shift Pt A&O x4. VSS. Spo2 > 92% on RA. Monitor showing ST, HR 100-110s. Pt w/ no bleeding per stoma this shift. Colostomy bag w/ liquid brown output. Pt denying pain/discomfort. LR gtt infusing per orders w/ rate decreased this shift per MD order.
--- NOTE | 2025-08-02 17:03 | NUR ---
ALESIA REMAINS HOPEFULL THAT THE BLEEDING WITH STOP AND SHE WILL BE ABLE TO MAINTAIN H/H WITHOUT NEEDING ANY MORE BLOOD PRODUCTS. GOAL: PT TO FILL OUT ADVANCE DIRECTIVE. PT EXPRESSES SHE WOULD LIKE TO APPOINT HER [facility] [employer] MAKER. PC TO REMAIN AVAILABLE NEEDED.
[2025-08-03] VITALS (12 sets, daily range): BP systolic 92–107; BP diastolic 43–73
[2025-08-03 04:08] LABS: BASOPHILS ABSOLUTE AUTO 0.03 K/mm3 (0.00-0.23); BASOPHILS PERCENT AUTO 0 % (0-2); EOSINOPHILS ABSOLUTE AUTO 0.36 K/mm3 (0.00-0.68); EOSINOPHILS PERCENT AUTO 2 % (0-6); Hematocrit 24.9 % (33.0-51.0); Hemoglobin 8.2 g/dL (11.5-16.0); IMMATURE GRAN ABSOLUTE AUTO 0.17 K/mm3 (0.00-0.10); IMMATURE GRAN PERCENT AUTO 1 % (0-1); LYMPHOCYTES ABSOLUTE AUTO 3.46 K/mm3 (0.84-5.20); LYMPHOCYTES PERCENT AUTO 19 % (21-46); MONOCYTES ABSOLUTE AUTO 2.10 K/mm3 (0.16-1.47); MONOCYTES PERCENT AUTO 12 % (4-13); Mean Corpuscular HGB Conc 32.9 g/dL (31.5-36.5); Mean Corpuscular Volume 93 fL (80-100); NEUTROPHILS ABSOLUTE AUTO 11.74 K/mm3 (1.96-9.15); NEUTROPHILS PERCENT AUTO 66 % (41-73); NRBC ABSOLUTE 0.00 K/mm3 (0.00-0.02); NRBC Auto 0.0 /100 WBC (0.0-0.2); Platelet Count 103 K/mm3 (150-400); RDW Coefficient Variation 20.0 % (11.7-14.2); RDW Standard Deviation 62.4 fL (35.1-46.3)
[2025-08-03 04:45] LABS: Anion Gap 11.0 mmol/L (3-11); Blood Urea Nitrogen 33.0 mg/dL (8-24); CO2, Blood 22.0 mmol/L (21-32); Calcium, Blood 8.0 mg/dL (8.5-10.1); Chloride, Blood 106.0 mmol/L (98-108); Creatinine, Blood 1.88 mg/dL (0.40-1.00); Glucose, Blood 144.0 mg/dL (70-99); Potassium, Blood 3.5 mmol/L (3.5-5.5); Sodium, Blood 135.0 mmol/L (136-145)
--- NOTE | 2025-08-03 06:38 | NUR ---
SHIFT SUMMARY PT A&O X4, CALM, COOPERATIVE TO CARE. PT IN SINUS RHYTHM TO SINUS TACH, 90' S-100'S. SHE DENIES ANY CP/PRESSURE, NUMB/TINGLING, SBP STABLE. PT ON RA, SpO2 >95%, SHE DENIES ANY SOB. PT HAS PUREWICK IN PLACE. PT HAS OSTOMY WITH PROLAPSED STOMA. STOMA OBLONG AND RED, DRAINING BROWN, LIQUID STOOL. PT HAS HAD SOME BLEEDING FROM OSTOMY T/O SHIFT. PT RESTING IN BED AT THIS TIME. CALL LIGHT IN REACH. WILL MONITOR PT AND REPORT TO ONCOMING RN.
[2025-08-03] MEDS ORDERED: JARDIANCE10 MG PO (07:38)
[2025-08-03] MEDS ORDERED: STATIN (07:40)
[2025-08-03] MEDS ORDERED: ONDA4ODT MM (07:41)
--- NOTE | 2025-08-03 15:30 | NUR ---
Pt had leaking from the left side of the ostomy appliance, appears to be very dark brown with red tinge liquid, likely stool. Appliance was removed and the skin cleaned and prepped. Cut wafer to fit the stoma and applied stoma powder in thin layer to dry the area. Stoma paste applied and the appliance was applied. Pt tolerated well. Appliance appears to be adhering well.
--- NOTE | 2025-08-03 18:27 | NUR ---
Mediport was saline locked, purewick removed and pt readied for transport to surgery. traffic monitor specialist tech was notified of the pt going to surgery.
[2025-08-03] MEDS ORDERED: FentaNYL Citrate 50 MCG/ML 2 ML Injection ONE (18:35)
[2025-08-03] MEDS ORDERED: FentaNYL Citrate 50 MCG/ML 2 ML Injection IV PRN ×2 (18:35)
[2025-08-03] MEDS ORDERED: HYDROmorphone HCl/Pf 1MG SYR IV PRN (18:35)
[2025-08-03] MEDS ORDERED: Albuterol 2.5 MG/3 ML VIAL INH PRN (18:40)
[2025-08-03] MEDS ORDERED: Ondansetron HCl 2 MG / ML 2ML Vial IV PRN (18:40)
--- NOTE | 2025-08-03 18:42 | NUR ---
20G IV ROWAN. FLUSHED WELL. PT TO PACU VIA GURN. ALL BELONGINGS LEFT IN PT'S ROOM. TELE BOX REMAINS IN PLACE.
--- NOTE | 2025-08-03 18:58 | NUR ---
SHIFT SUMMARY: A/O X4, PLEASANT AND COOPERATIVE WITH CARE, ABLE TO COMMUNICATE NEEDS, USES CALL LIGHT APPROPRIATELY. SBP 90 S-100 S, NSR-ST, HR 90 S-110 S, DENIES DIZZINESS, CHEST PAIN OR PRESSURE, MEDIPORT ACCESS TO RIGHT UPPER CHEST W/LR RUNNING PER ORDER. NPO PENDING SURGERY, LOW URINE OUTPUT THIS SHIFT, 1 UNMEASURED INCONTINENT VOID, APPROX 250ML OF COLA COLORED LIQUID STOOL PASSED, OSTOMY COLLECTION SYSTEM CHANGED TWICE THIS SHIFT FOR LEAKAGE. PT REPOSITIONED Q1-2 HOURS, ABLE TO REPOSITION SELF, WILL CALL TO REQUEST HELP NEEDED, UP TO CHAIR THIS MORNING, PT REPORTS, "THIS FEELS GOOD ON MY BACK". PT ORIENTED TO CALL LIGHT, EXPRESSES NO FURTHER NEEDS AT THIS TIME. PT TO OR FOR UROLOGY PROCEDURE AT APPROX 1815.
--- NOTE | 2025-08-03 20:04 | NUR ---
ASSUMPTION OF CARE REPORT RECIEVED FROM GARRISON/JENNIFER SUGGS. PT IN PROCEDURE AT THIS TIME.
[2025-08-03] MEDS ORDERED: Phenylephrine HCl 100 MCG/ML-NS 10MLSYR (1MG/10ML) ONE (20:19)
[2025-08-03] MEDS ORDERED: CeFAZolin Sodium 1000 mg Vial ONE ×2 (20:19→20:20)
--- NOTE | 2025-08-03 22:14 | NUR ---
PT ARRIVED TO PCU FROM [facility] PACU AROUND 2109. PT SLID FROM GURNEY TO BED. LINENS CHANGED. PUREWICK REPLACED. PT A&O X4, CALM, COOPERATIVE TO CARE. HR IN THE 90'S, SR. SHE DENIED ANY CP/PRESSURE, NUMB/TINGLING, SBP SOFT IN THE 90'S, MAP >65. PT DENIES ANY DIZZINESS, LIGHTHEADED. SpO2 >95% ON RA, SHE DENIES ANY SOB. PT RESTING IN BED AT THIS TIME. CALL LIGHT IN REACH. WILL MONITOR PT.
[2025-08-04 03:59] VITALS: BP 110/59
[2025-08-04 04:38] LABS: BASOPHILS ABSOLUTE AUTO 0.01 K/mm3 (0.00-0.23); BASOPHILS PERCENT AUTO 0 % (0-2); EOSINOPHILS ABSOLUTE AUTO 0.00 K/mm3 (0.00-0.68); EOSINOPHILS PERCENT AUTO 0 % (0-6); Hematocrit 25.2 % (33.0-51.0); Hemoglobin 8.3 g/dL (11.5-16.0); IMMATURE GRAN ABSOLUTE AUTO 0.14 K/mm3 (0.00-0.10); IMMATURE GRAN PERCENT AUTO 1 % (0-1); LYMPHOCYTES ABSOLUTE AUTO 1.19 K/mm3 (0.84-5.20); LYMPHOCYTES PERCENT AUTO 9 % (21-46); MONOCYTES ABSOLUTE AUTO 0.33 K/mm3 (0.16-1.47); MONOCYTES PERCENT AUTO 3 % (4-13); Mean Corpuscular HGB Conc 32.9 g/dL (31.5-36.5); Mean Corpuscular Volume 94 fL (80-100); NEUTROPHILS ABSOLUTE AUTO 11.19 K/mm3 (1.96-9.15); NEUTROPHILS PERCENT AUTO 87 % (41-73); NRBC ABSOLUTE 0.00 K/mm3 (0.00-0.02); NRBC Auto 0.0 /100 WBC (0.0-0.2); Platelet Count 94 K/mm3 (150-400); RDW Coefficient Variation 20.1 % (11.7-14.2); RDW Standard Deviation 61.9 fL (35.1-46.3)
[2025-08-04 04:59] LABS: Alanine Aminotransfer (ALT/SGP 33.0 U/L (12-78); Albumin, Blood 1.6 g/dL (3.4-5.0); Albumin/Globulin Ratio 0.5 (0.8-1.8); Anion Gap 10.0 mmol/L (3-11); Aspartate Aminotrans (AST/SGOT 64.0 U/L (12-37); Bilirubin, Total 0.8 mg/dL (0.1-1.0); Blood Urea Nitrogen 40.0 mg/dL (8-24); CO2, Blood 21.0 mmol/L (21-32); Calcium, Blood 8.1 mg/dL (8.5-10.1); Chloride, Blood 105.0 mmol/L (98-108); Creatinine, Blood 1.92 mg/dL (0.40-1.00); Globulin, Blood 3.5 g/dL (2.2-4.0); Glucose, Blood 230.0 mg/dL (70-99); Potassium, Blood 3.4 mmol/L (3.5-5.5); Sodium, Blood 133.0 mmol/L (136-145); Total Protein, Blood 5.1 g/dL (6.4-8.2)
--- NOTE | 2025-08-04 06:13 | NUR ---
SHIFT [facility] PT A&O X4, CALM, COOPERATIVE TO CARE. PT IN SINUS RHYTHM TO SINUS TACH, 90' S-100'S. SHE DENIES ANY CP/PRESSURE, NUMB/TINGLING, SBP SOFT IN THE 90'S-100' S, MAP >65. PT ON RA, SpO2 >95%, SHE DENIES ANY SOB. PT HAS PUREWICK IN PLACE. MINIMAL OUTPUT, BLADDER SCAN PERFORMED <50MLS IN BLADDER. PT S/P URETERAL STENT PLACEMENT ON 08/03. SHE HAS HAD SOME VAGINAL BLEEDING/RED TINGED URINE POST PROCEDURE, DENIES ANY PAIN. PT HAS OSTOMY WITH PROLAPSED STOMA. STOMA OBLONG AND RED, DRAINING BROWN, LIQUID STOOL. BLEEDING FROM OSTOMY T/O SHIFT. PT RESTING IN BED AT THIS TIME. CALL LIGHT IN REACH. WILL MONITOR PT AND REPORT TO ONCOMING RN.
[2025-08-04 07:48] VITALS: BP 105/69
[2025-08-04 11:43] VITALS: BP 96/55
--- NOTE | 2025-08-04 12:48 | NUR ---
PT IS A&Ox4 AND ABLE TO MAKE NEEDS KNOWN. SHE IS ON RA W/O2 SATS > 92%. SHE IS A SBA FOR AMBULATION. STOMA PROTRUDES OUT OF ABDOMEN INTO OSTOMY POUCH AND IS PINK/RED IN COLOR. NO NEEDS OR CONCERNS NOTED @ THIS TIME. BED IN LOW POSITION, CALL LIGHT AND PERSONAL BELONGINGS IN REACH.
[2025-08-04 15:50] VITALS: BP 110/54
--- NOTE | 2025-08-04 17:06 | NUR ---
SHIFT SUMMARY/TRANSFER 1640 PT AOX4, COOPERATIVE, ABLE TO MAKE NEEDS KNOWN. PT IS SBA TO BED FROM WITHOUT EVENTS. DOES HAVE OSTOMY WITH APPROX 1 FOOT OF STOMA SENT FROM PCU, PT REPORTS LENGTH IS "NORMAL" BUT IS A BIT "SWOLLEN". ON ROOM AIR, PURE WICK IN PLACE DUE TO PT PREFERENCE, PT REPORTED SHE HAS BEEN GETTING UP FOR MEALS. MEDIPORT ACCESSED RIGHT CHEST WALL, RUNNING LR 75ML/HR. BED IN LOWEST POSITION, CALL LIGHT WITHIN REACH.
[2025-08-04 20:01] VITALS: BP 95/58
[2025-08-05 04:53] LABS: BASOPHILS ABSOLUTE AUTO 0.02 K/mm3 (0.00-0.23); BASOPHILS PERCENT AUTO 0 % (0-2); EOSINOPHILS ABSOLUTE AUTO 0.01 K/mm3 (0.00-0.68); EOSINOPHILS PERCENT AUTO 0 % (0-6); Hematocrit 23.5 % (33.0-51.0); Hemoglobin 7.8 g/dL (11.5-16.0); IMMATURE GRAN ABSOLUTE AUTO 0.22 K/mm3 (0.00-0.10); IMMATURE GRAN PERCENT AUTO 1 % (0-1); LYMPHOCYTES ABSOLUTE AUTO 2.07 K/mm3 (0.84-5.20); LYMPHOCYTES PERCENT AUTO 11 % (21-46); MONOCYTES ABSOLUTE AUTO 1.73 K/mm3 (0.16-1.47); MONOCYTES PERCENT AUTO 9 % (4-13); Mean Corpuscular HGB Conc 33.2 g/dL (31.5-36.5); Mean Corpuscular Volume 95 fL (80-100); NEUTROPHILS ABSOLUTE AUTO 15.18 K/mm3 (1.96-9.15); NEUTROPHILS PERCENT AUTO 79 % (41-73); NRBC ABSOLUTE 0.00 K/mm3 (0.00-0.02); NRBC Auto 0.0 /100 WBC (0.0-0.2); Platelet Count 99 K/mm3 (150-400); RDW Coefficient Variation 19.9 % (11.7-14.2); RDW Standard Deviation 64.4 fL (35.1-46.3)
[2025-08-05 05:15] LABS: Anion Gap 11.0 mmol/L (3-11); Blood Urea Nitrogen 45.0 mg/dL (8-24); CO2, Blood 20.0 mmol/L (21-32); Calcium, Blood 8.4 mg/dL (8.5-10.1); Chloride, Blood 106.0 mmol/L (98-108); Creatinine, Blood 2.0 mg/dL (0.40-1.00); Glucose, Blood 178.0 mg/dL (70-99); Potassium, Blood 3.2 mmol/L (3.5-5.5); Sodium, Blood 134.0 mmol/L (136-145)
--- NOTE | 2025-08-05 05:21 | NUR ---
ASSOCIATE DIRECTOR QA SUMMARY PT A/OX4. NO ACUTE EVENTS. ASSISTED PT WITH OSTOMY APPLIANCE CHANGE. OUTPUT IS LOOSE BROWN STOOL. PT HAS A PURWICK IN PLACE. MINIMAL URINE OUTPUT THIS SHIFT. URINE CONTINUE TO BE BLOOD TINGED. PT DENIED ABD OR BACK PAIN. NOTED A BUMP UP IN WBC COUNT WITH MORNING LABS. ASSISTED PT WITH POSITION CHANGES T/O THE NIGHT. PT CHEST MEDIPORT IS ACCESSED AND CONT FLUIDS AT 75MLS HOUR. MORNING LABS OBTAINED THRU MEDIPORT. PT CALL LIGHT IS ACCESSIBLE. REGULAR INTERVAL ROUNDING COMPLETE T/O THE NIGHT PATIENT ABLE TO MAKE NEEDS KNOWN. CARE ONGOING.
[2025-08-05 07:21] VITALS: BP 94/45
--- NOTE | 2025-08-05 07:37 | NUR ---
BLADDER SCAN--LITTLE URINE OUTPUT. PT OUTPUT OF URINE LESS THAN 100MLS OVER NIGHT. BLADDER SCAN SHOWS ONLY 150 RESIDUAL URINE IN THE BLADDER. PT CONTINUES TO DENY ABD, FLANK OR BACK PAIN. WBC TRENDED UP OVERNIGHT. MADE CONCOMING NURSE AWARE OF CONCERNS. DR ZARATE MAKE AWARE AND AT PT BEDSIDE THIS AM.
[2025-08-05 16:07] VITALS: BP 103/65
--- NOTE | 2025-08-05 17:50 | NUR ---
SHIFT SUMMARY PT AOX4, COOPERATIVE, ABLE TO MAKE NEEDS KNONW. PT IS SBA TO AMBULATE. TOLERATING MEDICATIONS, PT DOES HAVE DIFFIUCLTY TAKING PROBIOTIC OR POTASSIUM MED, SPLIT AND SWALLOW WITH APPLESAUCE. OSTOMY LOOKS WITHIN LIMITS, MORE "STOOL-LOOKING" OUTPUT THIS SHIFT COMPARED TO YESTERDAY. PT REPORTED HAVING PAIN WHEN URINATING, HAS BEEN HAPPENING ALL DAY BUT JUST NOW REPORTED TO NURSING STAFF. BLADDER SCANNED, PLACED STRAIGHT CATH FOR UA, 200ML OUTPUT IN APPROX 2 HOURS WITH LR RUNNING. PT DID REPORT PAIN FREQUENCY INCREASED DURING CATHETER INSTERTION, BUT WAS STILL OCCURING WITHOUT CATHETER. MD INFORMED, ORDERS TO BE PLACED PER MD. BED IN LOWST POSITION, CALL LIGHT WITHIN REACH.
[2025-08-05 19:55] VITALS: BP 97/58
[2025-08-05] MEDS ORDERED: Ondansetron HCl 2 MG / ML 2ML Vial IV PRN (20:50)
[2025-08-06 02:40] VITALS: BP 122/64
--- NOTE | 2025-08-06 04:37 | NUR ---
SHIFT SUMMARY; PATIENT SLEPT IN LONG INTERVALS, DECLINED ANY PAIN MEDS. IV LR/150ML/HR CONTINUOUS. DID HAVE NAUSEA WITH 1 EMESIS. HAD TO CALL HOSPITALIST FOR ZOFRAN ORDER. INCONT OF HEAVY URINE X 1, DID HAVE SMALL AMOUT BLOODY MUCUS IN ATTENDS. COLOSTOMY HAS LARGE INTESTINE LOOP IN BAG.
[2025-08-06 07:05] LABS: BASOPHILS ABSOLUTE AUTO 0.02 K/mm3 (0.00-0.23); BASOPHILS PERCENT AUTO 0 % (0-2); EOSINOPHILS ABSOLUTE AUTO 0.06 K/mm3 (0.00-0.68); EOSINOPHILS PERCENT AUTO 0 % (0-6); Hematocrit 23.4 % (33.0-51.0); Hemoglobin 7.8 g/dL (11.5-16.0); IMMATURE GRAN ABSOLUTE AUTO 0.18 K/mm3 (0.00-0.10); IMMATURE GRAN PERCENT AUTO 1 % (0-1); LYMPHOCYTES ABSOLUTE AUTO 2.08 K/mm3 (0.84-5.20); LYMPHOCYTES PERCENT AUTO 14 % (21-46); MONOCYTES ABSOLUTE AUTO 1.34 K/mm3 (0.16-1.47); MONOCYTES PERCENT AUTO 9 % (4-13); Mean Corpuscular HGB Conc 33.3 g/dL (31.5-36.5); Mean Corpuscular Volume 94 fL (80-100); NEUTROPHILS ABSOLUTE AUTO 10.79 K/mm3 (1.96-9.15); NEUTROPHILS PERCENT AUTO 75 % (41-73); NRBC ABSOLUTE 0.00 K/mm3 (0.00-0.02); NRBC Auto 0.0 /100 WBC (0.0-0.2); Platelet Count 85 K/mm3 (150-400); RDW Coefficient Variation 19.9 % (11.7-14.2); RDW Standard Deviation 64.5 fL (35.1-46.3)
[2025-08-06 07:20] LABS: Albumin, Blood 1.4 g/dL (3.4-5.0); Anion Gap 10 mmol/L (3-11); Blood Urea Nitrogen 48 mg/dL (8-24); CO2, Blood 22 mmol/L (21-32); Calcium, Blood 7.9 mg/dL (8.5-10.1); Chloride, Blood 107 mmol/L (98-108); Creatinine, Blood 1.79 mg/dL (0.40-1.00); Glucose, Blood 143 mg/dL (70-99); Phosphorus, Blood 3.3 mg/dL (2.5-4.9); Potassium, Blood 3.2 mmol/L (3.5-5.5); Sodium, Blood 136 mmol/L (136-145)
[2025-08-06 08:04] VITALS: BP 90/59
--- NOTE | 2025-08-06 08:45 | NUR ---
ATTEMPTED SUPPORTIVE VISIT: ALESIA DECLINED VISIT THIS MORNING. SHE REPORTS WANTING TO SLEEP A BIT LONGER. PC TO REMAIN AVAILABLE NEEDED/REQUESTED.
[2025-08-06] MEDS ORDERED: Protein Supplement 30 ML UD PO SCH (09:00)
[2025-08-06 13:00] VITALS: BP 113/60
[2025-08-06] MEDS ORDERED: Albumin (Human) 25gm/100ml 100 ML IV SCH (14:00)
[2025-08-06 15:07] VITALS: BP 109/65
--- NOTE | 2025-08-06 18:46 | NUR ---
END OF SHIFT PATIENT RESTING IN BED. A&OX4, ABLE TO MAKE NEEDS KNOWN. MEDIPORT USED TODAY FOR INFUSING. ATTENDS IN PLACE, OSTOMY IN PLACE. PATIENT ROTATED IN BED, IND AND WITH ASSISTANCE. BLADDER SCAN DONE, 16 ML. CALL LIGHT IN REACH. NO OTHER CONCERNS FOR THIS SHIFT.
[2025-08-06 19:52] VITALS: BP 97/56
[2025-08-07] VITALS (10 sets, daily range): BP systolic 89–128; BP diastolic 45–69
[2025-08-07 05:25] LABS: BASOPHILS ABSOLUTE AUTO 0.01 K/mm3 (0.00-0.23); BASOPHILS PERCENT AUTO 0 % (0-2); EOSINOPHILS ABSOLUTE AUTO 0.08 K/mm3 (0.00-0.68); EOSINOPHILS PERCENT AUTO 1 % (0-6); IMMATURE GRAN ABSOLUTE AUTO 0.07 K/mm3 (0.00-0.10); IMMATURE GRAN PERCENT AUTO 1 % (0-1); LYMPHOCYTES ABSOLUTE AUTO 1.16 K/mm3 (0.84-5.20); LYMPHOCYTES PERCENT AUTO 17 % (21-46); MONOCYTES ABSOLUTE AUTO 0.64 K/mm3 (0.16-1.47); MONOCYTES PERCENT AUTO 9 % (4-13); Mean Corpuscular HGB Conc 32.4 g/dL (31.5-36.5); Mean Corpuscular Volume 96 fL (80-100); NEUTROPHILS ABSOLUTE AUTO 5.05 K/mm3 (1.96-9.15); NEUTROPHILS PERCENT AUTO 72 % (41-73); NRBC ABSOLUTE 0.00 K/mm3 (0.00-0.02); NRBC Auto 0.0 /100 WBC (0.0-0.2); Platelet Count 54 K/mm3 (150-400); RDW Coefficient Variation 19.8 % (11.7-14.2); RDW Standard Deviation 66.5 fL (35.1-46.3)
[2025-08-07 05:33] LABS: Hematocrit 17.9 % (33.0-51.0); Hemoglobin 5.8 g/dL (11.5-16.0)
[2025-08-07 05:47] LABS: Albumin, Blood 1.6 g/dL (3.4-5.0); Anion Gap 10 mmol/L (3-11); Blood Urea Nitrogen 45 mg/dL (8-24); CO2, Blood 19 mmol/L (21-32); Calcium, Blood 6.4 mg/dL (8.5-10.1); Chloride, Blood 117 mmol/L (98-108); Creatinine, Blood 1.28 mg/dL (0.40-1.00); Glucose, Blood 109 mg/dL (70-99); Phosphorus, Blood 2.2 mg/dL (2.5-4.9); Potassium, Blood 2.7 mmol/L (3.5-5.5); Sodium, Blood 143 mmol/L (136-145)
--- NOTE | 2025-08-07 06:15 | NUR ---
SHIFT SUMMARY PATIENT IS ALERT AND ORIENTED. PATIENT HAS HAD NO COMPLAINTS OF PAIN, NAUSEA, SOB OR VOMITTING THIS SHIFT. VITAL SIGNS REVIEWED. PATIENT HAS HAD A HGB OF 5.8 WITH MORNING LABS. PROVIDER NOTIFIED. UPDATED ORDERS INPUTTED.
--- NOTE | 2025-08-07 08:30 | NUR ---
BLOOD TRANSFUSION WAS VERIFIED WITH SUKUMAR JACOBSEN, CORI PAL AND THIS RN.
[2025-08-07 15:25] LABS: Hematocrit 29.5 % (33.0-51.0); Hemoglobin 10.0 g/dL (11.5-16.0)
--- NOTE | 2025-08-07 18:41 | NUR ---
END OF SHIFT NOTE PATIENT A&O4, RESTING IN BED. PATIENT REFUSED TO GET OUT OF BED TODAY, OFFERED MANY TIMES TO GET UP TO THE CHAIR, SHOWER, OR SIT AT SIDE OF BED. PATIENT REFUSED. 2 UNITS OF BLOOD GIVEN TODAY. MEDIPORT INFUSING TO ORDER. PATIENT VERY SHAKEY AND COLD TODAY. OSTOMY HAS PUT OUT BROWNISH FLUID, IN LARGE AMOUNTS. ATTENDS IN PLACE, SMALL AMOUNT OF PINK/REDDISH SLIM LIKE DISCHARGE IN ATTENDS. NO OTHER CONCERNS FOR THIS SHIFT.
[2025-08-08 04:15] VITALS: BP 104/62
--- NOTE | 2025-08-08 04:44 | NUR ---
SHIFT SUMMARY PATIENT IS ALERT AND ORIENTED. PATIENT HAS HAD NO ACUTE EVENTS THIS SHIFT. VITAL SIGNS REVIEWED. PATIENT HAS NO COMPLAINTS OF SOB, NAUSEA, PAIN OR VOMITTING THIS SHIFT. MEDIPORT INFUSING ORDERED. PATIENT HAS BEEN HAVING SOME MODERATE AMOUNT OF FLUID/BLOODY DISCHARGE FROM CLOSTOMY STOMA THIS SHIFT. BED IN LOCKED AND LOWEST POSITION. CALL LIGHT IN PLACE.
[2025-08-08 07:26] VITALS: BP 106/57
[2025-08-08 10:05] LABS: BASOPHILS ABSOLUTE AUTO 0.05 K/mm3 (0.00-0.23); BASOPHILS PERCENT AUTO 0 % (0-2); EOSINOPHILS ABSOLUTE AUTO 0.04 K/mm3 (0.00-0.68); EOSINOPHILS PERCENT AUTO 0 % (0-6); Hematocrit 35.4 % (33.0-51.0); Hemoglobin 11.8 g/dL (11.5-16.0); IMMATURE GRAN ABSOLUTE AUTO 0.36 K/mm3 (0.00-0.10); IMMATURE GRAN PERCENT AUTO 2 % (0-1); LYMPHOCYTES ABSOLUTE AUTO 2.11 K/mm3 (0.84-5.20); LYMPHOCYTES PERCENT AUTO 10 % (21-46); MONOCYTES ABSOLUTE AUTO 1.85 K/mm3 (0.16-1.47); MONOCYTES PERCENT AUTO 9 % (4-13); Mean Corpuscular HGB Conc 33.3 g/dL (31.5-36.5); Mean Corpuscular Volume 93 fL (80-100); NEUTROPHILS ABSOLUTE AUTO 16.85 K/mm3 (1.96-9.15); NEUTROPHILS PERCENT AUTO 79 % (41-73); NRBC ABSOLUTE 0.02 K/mm3 (0.00-0.02); NRBC Auto 0.1 /100 WBC (0.0-0.2); Platelet Count 102 K/mm3 (150-400); RDW Coefficient Variation 19.2 % (11.7-14.2); RDW Standard Deviation 60.9 fL (35.1-46.3)
[2025-08-08 10:14] LABS: Anion Gap 10.0 mmol/L (3-11); Blood Urea Nitrogen 51.0 mg/dL (8-24); CO2, Blood 22.0 mmol/L (21-32); Calcium, Blood 8.1 mg/dL (8.5-10.1); Chloride, Blood 109.0 mmol/L (98-108); Creatinine, Blood 1.53 mg/dL (0.40-1.00); Glucose, Blood 181.0 mg/dL (70-99); Potassium, Blood 3.8 mmol/L (3.5-5.5); Sodium, Blood 137.0 mmol/L (136-145)
[2025-08-08 15:17] VITALS: BP 112/65
[2025-08-08 20:08] VITALS: BP 100/58
[2025-08-09] VITALS (7 sets, daily range): BP systolic 86–133; BP diastolic 59–92
[2025-08-09 04:43] LABS: BASOPHILS ABSOLUTE AUTO 0.04 K/mm3 (0.00-0.23); BASOPHILS PERCENT AUTO 0 % (0-2); EOSINOPHILS ABSOLUTE AUTO 0.08 K/mm3 (0.00-0.68); EOSINOPHILS PERCENT AUTO 0 % (0-6); Hematocrit 32.0 % (33.0-51.0); Hemoglobin 10.7 g/dL (11.5-16.0); IMMATURE GRAN ABSOLUTE AUTO 0.34 K/mm3 (0.00-0.10); IMMATURE GRAN PERCENT AUTO 2 % (0-1); LYMPHOCYTES ABSOLUTE AUTO 2.14 K/mm3 (0.84-5.20); LYMPHOCYTES PERCENT AUTO 10 % (21-46); MONOCYTES ABSOLUTE AUTO 2.18 K/mm3 (0.16-1.47); MONOCYTES PERCENT AUTO 10 % (4-13); Mean Corpuscular HGB Conc 33.4 g/dL (31.5-36.5); Mean Corpuscular Volume 93 fL (80-100); NEUTROPHILS ABSOLUTE AUTO 16.35 K/mm3 (1.96-9.15); NEUTROPHILS PERCENT AUTO 77 % (41-73); NRBC ABSOLUTE 0.00 K/mm3 (0.00-0.02); NRBC Auto 0.0 /100 WBC (0.0-0.2); Platelet Count 83 K/mm3 (150-400); RDW Coefficient Variation 18.8 % (11.7-14.2); RDW Standard Deviation 59.2 fL (35.1-46.3)
[2025-08-09 04:58] LABS: Anion Gap 8.0 mmol/L (3-11); Blood Urea Nitrogen 57.0 mg/dL (8-24); CO2, Blood 23.0 mmol/L (21-32); Calcium, Blood 8.1 mg/dL (8.5-10.1); Chloride, Blood 111.0 mmol/L (98-108); Creatinine, Blood 1.57 mg/dL (0.40-1.00); Glucose, Blood 166.0 mg/dL (70-99); Potassium, Blood 3.7 mmol/L (3.5-5.5); Sodium, Blood 138.0 mmol/L (136-145)
--- NOTE | 2025-08-09 05:44 | NUR ---
END OF SHIFT SUMMARY: A&Ox3-4. PLEASANT AND COOPERATIVE WITH CARE c ENOUGH ENCOURAGEMENT. ABLE TO VERBALIZE NEEDS. VSS. BREATHING EVEN AND UNLABORED c RA. CONTINENT OF BLADDER BUT UNMOTIVATED TO TRANSFER TO BSC AND INSISTS ON USING BRIEF. OSTOMY FOR STOOLING WITH LITTLE TO NO BLOOD NOTED. NPO IN ANTICIPATION OF POSSIBLE IVC FILTER PLACEMENT c [place]. MEDS WHOLE c FLUIDS BUT REFUSED PROBIOTIC D/T SIZE. LR INCREASED TO 150mL/hr PER DR RUIZ NOTE. BLOOD COLLECTION FROM PORT FOR AM LABS. BED IN LOWEST POSITION, CALL LIGHT WITHIN REACH, ALL NEEDS MET. REPORT TO ONCOMING NURSE.
[2025-08-09] MEDS ORDERED: Insulin Regular 100 UNIT/ML 10ML Vial SC SCH (12:00)
--- NOTE | 2025-08-09 15:00 | NUR ---
SUPPORTIVE VISIT SHIFTED TO GOALS OF CARE VISIT BY PT/FAMILY LED CONVERSATION. CODE STATUS CHANGE TO DNR. CONTINUE WITH CURRENT TREATMENT PLAN. RE-EVAL S/P IVC FILTER PLACEMENT. PT LYING SUPINE UPON THIS PC RN ENTERING ROOM. DENIES PAIN. AGREEABLE TO RAISING HEAD OF BED FOR THIS VISIT. FLAT AFFECT. A/O X4. DOES ANSWER QUESTIONS APPROPRIATELY. ABLE TO MAKE NEEDS KNOWN. PT'S SUPPORT SYSTEM, IE. SONS AND SAPNA, HER FRIEND (EX-). ALESIA HAS STATED ON MULTIPULE OCCATIONS, SAPNA CAMPBELL IS HER CHOSEN DECISION MAKER. PT IS CURRENTLY WORKING ON AN ADVANCE DIRECTIVE TO SOLIDIFY HER ALLOCATION OF SAPNA DECISION MAKER. PER PT AND SAPNA, BOTH OF THEIR SONS ARE AUTISTIC AND NOT ABLE TO MAKE MEDICAL DECISIONS. ALESIA HAS BEEN ON/OFF CANCER TX FOR THE LAST 10 YEARS. SAPNA REPORTS SINCE MID PT'S ORAL INTAKE FOR SOLIDS/LIQUIDS HAS DECREASED BY 50% OR GREATER. PT REPORTS SHE HAS BEEN SLEEPING ON THE COUCH BECAUSE SHE DOESN'T HAVE ENOUGH ENERGY TO AMBULATE HER STAIRS TO GET TO HER ROOM. 2 MONTHS AGO SHE WAS ABLE TO AMBULATE IN HER HOME WITH A WALKER AND FURNITURE SURFING. JUST PRIOR TO ADMISSION SHE WAS USING A WHEELCHAIR TO AMBULATE OUTSIDE THE HOME. NO LONGER SEEKING CANCER TX. PROVIDER REPORTS PT IS HOSPICE APPROPRIATE. PT CONTINUES TO MEDICALLY DECLINE SINCE ADMISSION. NOW NEEDING IVC FILTER. PT WOULD LIKE TO PROCEED WITH IVC FILTER INTERVENTION AND THEN TRANSITION TO COMFORT CARE. ALESIA IS A AND WOULD LIKE TO DISCHARGE TO THE [facility]. A GREAT DEAL OF TIME WAS SPENT THOROUGHLY EDUCATING PT AND SAPNA WHAT COMFORT CARE AND HOSPICE ENTAILS. ALESIA STATES, "I DON'T WANT MY BOYS TO SEE TUBES STICKING OUT OF ME EVERY WHERE." ALESIA REPORTS BEING A [place]ACE WITH HER DECISION WITH BOTH THE BOYS EXPRESSING THEY WANT HER TO BE COMFORTABLE. PC TO REMAIN AVAILABLE FOR SUPPORT NEEDED. INTRODUCED SAPNA TO FRONT MAKER LOCKSTITCH SARAHY AND PROVIDED CM WITH UPDATED PT WISHES.
--- NOTE | 2025-08-09 16:23 | NUR ---
SHIFT SUMMARY: PATIENT IS A&OX4/1 PERSON SBA. SHE HAS REMAINED IN BED MOST OF THE SHIFT, GOT UP INTO THE CHAIR ONCE FOR A SHORT PERIOD. SHE LACKS MOTIVATION AND DRIVE TO PARTICIPATE WITH CARE. PATIENT IS PLEASANT AND COOPERATIVE. FLAT/WITHDRAWN/DEPRESSED. SHE EXPRESSED ABD DISCOMFORT, BUT DENIES PAIN MEDICATION. SHE STATES THAT PROTRUSION OF STOMA IS NORMAL; WATERY/LOOSE/BLOOD DRAINAGE FROM OSTOMY. SHE CONTINUES TO LR AT 150ML/HR, SHE REMAINS NPO AWAITING CONSULT FROM IR FOR POSSIBLE IVC FILTER. DISCUSSION WITH PALLATIVE TODAY TO PURSUE HOSPICE. PATIENT IN HER ROOM, RESTING, RESPIRATIONS EVEN AND UNLABORED, EASILY AWAKENS TO VERBAL STIMULI, CALL LIGHT WITHIN REACH, NO SIGNS OR SYMPTOMS OF DISTRESS, PLAN OF CARE ONGOING.
--- NOTE | 2025-08-09 17:17 | NUR ---
PALLIATIVE CARE VISIT: REQUEST FROM PRIMARY RN TO DISCUSS CODE STATUS WITH PT. PER RN PT STATES HE WOULD WANT ONE ROUND OF CPR. MET WITH PT IN HIS ROOM. PT IS A/O X 4 AND AGREEABLE TO VISIT. EDUCATED PT ON CPR VS DNR MEASURES. THE RISKS WITH CPR. CONFIRMED PT WOULD WANT INTUBATION IF NECESSARY. PT STATES HE WOULD WANT FULL MEASURES BUT NOT TO ONLY DO ONE ROUND OF CPR. PT TO REMAIN A FULL CODE. DISCUSSED SYMPTOMS. PT STATES HE HAS PAIN TO HIS LEFT SIDE OF ABD FROM A RIB FX. PT DENIES ANY OTHER PAIN. PT STATES HE DOES NOT WANT TO TAKE TYLENOL, IBU OR ANY NARCOTIC AT THIS TIME. HE IS AGREEABLE TO TRYING A LIDOCAINE PATCH. PT STATES NAUSEA IS MANAGED WITH CURRENT MEDICATIONS. DENIES SOB, ANXIETY, DOES REPORT DECREASED APPETITE BUT DOES NOT WANT ANY INTERVENTION FOR THIS. SPOKE TO DR. RUIZ AND SHE GAVE ORDER FOR LIDOCAINE PATCH DAILY. ORDER PLACED. UPDATED PRIMARY RN.
[2025-08-10] VITALS (9 sets, daily range): BP systolic 86–102; BP diastolic 52–64
--- NOTE | 2025-08-10 05:15 | NUR ---
SHIFT SUMMARY PT A&Ox4 AND COOPERATIVE OF CARE. NO C/O PAIN. PT's BP WAS 86/59 AT START OF SHIFT. HOSPITALIST NOTIFIED AND ORDER FOR 500LR BOLUS GIVEN. BP INCREASED TO 90/59 SO ORDER GIVEN FOR 10mg OF MIDODRINE WHICH BROUGHT BP TO 101/59. PT DID NOT GO FOR IVC FILTER PLACEMENT BUT IS SCHEDULED FOR TODAY, SO PT AGAIN NPO AT MIDNIGHT. LR INFUSING PER EMAR @ 150ml/hr. COLOSTOMY DRAINING LIQUID, RUST COLORED FLUID WITH SOME BROWN, SOFT STOOL. DECLINED MOST OFFERS TO REPOSITION. BED IN LOWEST POSITION AND CALL LIGHT IN REACH.
[2025-08-10] MEDS ORDERED: Lidocaine 4% 1 Patch TOP SCH (09:00)
--- NOTE | 2025-08-10 10:25 | NUR ---
PALLIATIVE CARE VISIT: MET WITH PT IN ROOM TO ASSIST WITH GETTING AD AND POA DOCUMENT NOTARIZED. PT DID NOT HAVE HER ID WITH HER. EX PRESENT AND STATED HE WOULD GET ID. CALLED DOWN TO [facility] BUT SHE WAS NOT HERE TODAY. RESCHEDULED TO COMPLETE ON WEDNESDAY. WENT OVER SYMPTOM MANAGEMENT WITH PT AND SHE STATED HER SYMPTOMS ARE MANAGED WITH CURRENT MEDICATION REGIMEN.
[2025-08-10 13:38] LABS: BASOPHILS ABSOLUTE AUTO 0.04 K/mm3 (0.00-0.23); BASOPHILS PERCENT AUTO 0 % (0-2); EOSINOPHILS ABSOLUTE AUTO 0.04 K/mm3 (0.00-0.68); EOSINOPHILS PERCENT AUTO 0 % (0-6); Hematocrit 33.8 % (33.0-51.0); Hemoglobin 11.1 g/dL (11.5-16.0); IMMATURE GRAN ABSOLUTE AUTO 0.32 K/mm3 (0.00-0.10); IMMATURE GRAN PERCENT AUTO 1 % (0-1); LYMPHOCYTES ABSOLUTE AUTO 2.05 K/mm3 (0.84-5.20); LYMPHOCYTES PERCENT AUTO 9 % (21-46); MONOCYTES ABSOLUTE AUTO 2.08 K/mm3 (0.16-1.47); MONOCYTES PERCENT AUTO 9 % (4-13); Mean Corpuscular HGB Conc 32.8 g/dL (31.5-36.5); Mean Corpuscular Volume 93 fL (80-100); NEUTROPHILS ABSOLUTE AUTO 19.15 K/mm3 (1.96-9.15); NEUTROPHILS PERCENT AUTO 81 % (41-73); NRBC ABSOLUTE 0.00 K/mm3 (0.00-0.02); NRBC Auto 0.0 /100 WBC (0.0-0.2); Platelet Count 87 K/mm3 (150-400); RDW Coefficient Variation 18.8 % (11.7-14.2); RDW Standard Deviation 61.9 fL (35.1-46.3)
[2025-08-10] MEDS ORDERED: NS 500 ML IV ONE (14:12)
[2025-08-10] MEDS ORDERED: NS 1,000 ML IV ONE (14:36)
[2025-08-10] MEDS ORDERED: Midazolam HCl 1MG / ML 2ML Vial ONE (14:42)
[2025-08-10] MEDS ORDERED: FentaNYL Citrate 50 MCG/ML 2 ML Injection ONE (14:42)
--- NOTE | 2025-08-10 15:25 | NUR ---
IVC FILTER: PT RETURNED TO ROOM 305 FROM IVC FILTER PLACEMENT [facility]. VSS ON ARRIVAL. FEMORAL VENOUS SITE C/D/I AND COVERED WITH TEGADERM DRESSING. SITE IS SOFT TO TOUCH. LYING FLAT AT THIS TIME. CALL LT WITHIN REACH. IVF INFUSING PER MAR. DENIES PAIN AT THIS TIME.
--- NOTE | 2025-08-10 17:26 | NUR ---
SHIFT SUMMARY: A&OX4 THROUGHOUT SHIFT. COOPERATIVE WITH CARE, BUT DOES SHOW TO BE WITHDRAWN AND HAVE A FLAT EFFECT. PT HAD IVC FILTER PLACED THIS AFTERNOON. SITE AND DRESSING REMAINS SOFT AND C/D/I WITH PT CONTINUING TO LIE FLAT DIRECTED. DENIES PAIN. PT HAS BEEN HYPOTENSIVE THROUGHOUT SHIFT AND MEDICATED PER MD CALLY AWARE. BREATHING EQUAL AND NONLABORED. DENIES CHEST PAIN AND/OR DISCOMFORT. DIET ORDER PLACED. BED LOCKED AND IN THE LOWEST POSITION. VISITOR IN ROOM AT THIS TIME. CALL LT WITHIN REACH.
[2025-08-11 04:21] VITALS: BP 80/56
--- NOTE | 2025-08-11 05:52 | NUR ---
SHIFT SUMMARY PT A&Ox4 AND COOPERATIVE OF CARE. NO C/O PAIN. IVC FILTER PLACED ON 08/10/25. DRESSING ON RIGHT FEMORAL ACCESS SIGHT REMAINS C/D/I AND NO REDNESS OR SWELLING NOTED. PT'S BP REMAINS SOFT. HOSPITALIST NOTIFIED AND ORDER GIVEN FOR 1 TIME DOSE OF MIDODRINE. COLOSTOMY CONTINUES TO PUT OUT RED LIQUID WITH SOME SOFT BROWN STOOL. LR INFUSING AT 150ml/hr VIA MEDIPORT. FLAT AFFECT. BED IN LOWEST POSITION AND CALL LIGHT IN REACH.
[2025-08-11] MEDS ORDERED: Insulin Regular 100 UNIT/ML 10ML Vial SC SCH (07:30)
[2025-08-11 07:49] VITALS: BP 91/58
[2025-08-11] MEDS ORDERED: Morphine Sulfate 20 MG/1ML 1 ML Oral Syringe SL PRN (12:00)
[2025-08-11 15:21] VITALS: BP 97/65
--- NOTE | 2025-08-11 18:13 | NUR ---
SHIFT SUMMARY: A&OX4 THROUGHOUT SHIFT. MOOD REMAINS WITHDRAWN AND FLAT, BUT IS PLEASANT AND COOPERATIVE WITH CARE. PT HAS TRANSITIONED TO COMFORT MEASURES. PLAN IT TO POSSIBLY D/C WEDNESDAY WITH HOSPICE. BREATHING IS EQUAL AND NONLABORED. MEDICATED FOR PAIN PER EMAR. LYING IN BED AT THIS TIME. BED LOCKED AND IN THE LOWEST POSITION. CALL LT WITHIN REACH.
[2025-08-11 19:52] VITALS: BP 86/57
--- NOTE | 2025-08-12 05:28 | NUR ---
SHIFT SUMMARY PT IS A&OX4, PLEASANT AND COOPERATIVE WITH CARE, AND CALLS APPROPRIATELY. PT DID EXPERIENCE SOME NAUSEA AND VOMITING T/O SHIFT, MEDICATED PER EMAR WITH GOOD EFFECT. NO OTHER ACUTE CHANGES THIS SHIFT. RESTED THIS SHIFT WITH EVEN AND UNLABORED RESPIRATIONS, BED IN THE LOWEST POSITION, AND CALL LIGHT WITHIN REACH.
[2025-08-12 09:04] VITALS: BP 97/65
[2025-08-12 13:26] VITALS: BP 99/35
[2025-08-12 17:42] VITALS: BP 115/70
--- NOTE | 2025-08-12 18:01 | NUR ---
SUMMARY- AAOX4. BEDREST. ON RA. LLQ PAIN WELL CONTROLLED WITH EMAR PAIN MEDS. PT'S OSTOMY DRESSING AND BAG COMPLETELY CHANGED THIS SHIFT-DAY SHIFT-08/12/25. PT HAD MINIMAL APPETITE THIS SHIFT WITH MODERATE AMOUNTS OF EMESIS (X2 EPISODES AFTER BREAKFAST AND BED BATH). NO SIGNIFICANT EVENTS THIS SHIFT. PT LET STAFF REPOSITION HER MINIMAL THIS SHIFT, ALTHOUGH SHE DID ALLOW SOME REPOSITIONING.
[2025-08-12 19:46] VITALS: BP 93/48
[2025-08-13 04:32] VITALS: BP 80/53
--- NOTE | 2025-08-13 05:43 | NUR ---
SHIFT SUMMARY PT IS A&OX4, PLEASANT AND COOPERATIVE WITH CARE. PT DENIED NAUSEA AND PAIN T/O SHIFT. NO ACUTE CHANGES THIS SHIFT. MAINTAINED HOB ELEVATED TO PREVENT NAUSEA, PER PT REQUEST. MEDIPORT ACCESSED AND INFUSING LR @75 MLs. PT RESTED T/O SHIFT WITH EVEN AND UNLABORED RESPIRATIONS, BED IN THE LOWEST POSITION, AND CALL LIGHT WITHIN REACH.
[2025-08-13 07:48] VITALS: BP 90/53
[2025-08-13] MEDS ORDERED: Miconazole Nitrate 2% 85 GM PWD TOP SCH ×2 (09:25→21:00)
[2025-08-13 12:15] VITALS: BP 81/50
[2025-08-13 15:33] VITALS: BP 91/54
--- NOTE | 2025-08-13 16:20 | NUR ---
PT A/OX4. PLEASANT AND COOPERATIVE WITH CARE. ANGEL HAS BEEN TREATED PER EMAR. PT IS ON BEDREST. SHE HAS A PUREWICK IN PLACE FOR INCONTINENCE. PT IS CURRENTLY RESTING IN BED, CHEST RISE AND FALL IS SYMMETRICAL AND UNLABORED. BED IS IN LOWEST POSITION, CALL LIGHT IS IN REACH. NO ACUTE NEEDS AT THIS TIME.
[2025-08-13 18:20] VITALS: BP 82/60
--- NOTE | 2025-08-14 04:57 | NUR ---
ORIENTING NURSE DOCUMENTATION REVIEW: TREATMENTS, MEDICATIONS AND PATIENT CARE PROVIDED TO PATIENT AND DOCUMENTATION ENTERED BY ORIENTING NURSEWALTER, OVERSEEN BY THIS RN.
--- NOTE | 2025-08-14 05:04 | NUR ---
SHIFT SUMMARY PT IS A&OX4, PLEASANT AND COOPERATIVE WITH CARE. PT DENIED PAIN AND NAUSEA T/O SHIFT. PTs OSTOMY IS PRODUCING MAROON COLORED LIQUID. PUREWICK IN PLACE. NO ACUTE CHANGES THIS SHIFT. PT RESTED T/O SHIFT WITH EVEN AND UNLABORED RESPIRATIONS, BED IN THE LOWEST POSITION, AND CALL LIGHT WITHIN REACH.
[2025-08-14 08:39] VITALS: BP 91/53
[2025-08-14 13:45] VITALS: BP 83/49
--- NOTE | 2025-08-14 13:50 | NUR ---
"Spiritual Care Visit | Comfort Care Pt. is awake in bed when she welcomes my visit. Pt. verbalized that she has made the decision to go on hospice at the [facility] Considered matters of family implications. Prayed for the Pt. Pt. verbalized rgatitude for the spiritual care visit."
[2025-08-14] MEDS ORDERED: Bentyl10 MG PO (15:48)
[2025-08-14] MEDS ORDERED: LIDO700A20 TOP (15:48)
[2025-08-14] MEDS ORDERED: MORP20L SL (15:49)
[2025-08-14] MEDS ORDERED: MECL25 PO (15:49)
[2025-08-14] MEDS ORDERED: MICONAZOLE NITR85 GM TOP (15:51)
--- NOTE | 2025-08-14 17:18 | NUR ---
ASSUMED CARE OF PT VERY PLEASENT PT ON COMFORT CARE, LAYING QUIETLY IN BED MEDIPORT ACCESSED AND INFUSING. LEFT LQ OSTOMY IS CLEAN AND INTACT, NO SOLID STOOL BUT LIQUID. LARGE PROLASE CAUSING MINIMAL PAIN, PT STATES ITS BEEN THAT WAS FOR A COUPLE OF YEARS. I ENC PT TO BE TURNED BUT PT ONLY WANTS TO BE TURNED MINIMALLY. I EXTRESSED THE IMPORTANCE OF NOT GETTING A BED SORE BUT SHE SAID SHE WAS COMFORTABLE AND WOULD LET ME KNOW IF SHE WANTED TO BE TURNED. I MANAGED TO ACCESS PT BACK NO BREAKDOWN NOTED, REDDNESS TO GROINING TREATED WITH POWDER. POSSIBLE PABLO PLACEMENT FOR AM TRANSFER.
--- NOTE | 2025-08-14 17:40 | NUR ---
NO CHANGE. PT STATES SHE IS COMFORTABLE AND DOESNT WANTOT BE TURNED. I CONT TO ASK EVERY HOUR, SHE WILL LET ME KNOW. OSTOMY HAVING LARGE AMOUNTS OF LIQ STOOL, RESEMBLING URING.
[2025-08-14 17:53] LABS: CORONAVIRUS COVID-19 AG Negative (NEGATIVE)
--- NOTE | 2025-08-15 06:38 | NUR ---
END OF SHIFT SUMMARY: A&Ox4. PLEASANT AND COOPERATIVE WITH CARE. CALLS APPROPRIATELY AND IS ABLE TO ADVOCATE NEEDS EFFECTIVELY. BREATHING EVEN AND UNLABORED c RA. OSTOMY CONTINUES c MIXED LIQUID AND SOFT STOOL OUTPUT. PUREWICK IN PLACE c MAROON OUTPUT c SOME CLOTS; SHE STATES THIS OCCURS OCCASIONALLY SINCE HER Dx. POOR APPETITE. HAS NOT BEEN OUT OF BED TONIGHT. FREQUENT REPOSITIONING. MEDS WHOLE c FLUIDS. NO ACUTE OVERNIGHT EVENTS. NO C / O PAIN OR DISCOMFORT ASIDE FROM SOME ANXIETY UPON WAKENING IN MIDDLE OF NIGHT. BED IN LOWEST POSITION, CALL LIGHT WITHIN REACH, ALL NEEDS MET. REPORT TO ONCOMING NURSE.
--- NOTE | 2025-08-15 08:34 | NUR ---
ASSUMED CARE. PT TO BE TRANSFERED TO [facility] ON COMFORT CARE. PT SPOKE OF SOME ANXIETY THIS MORNING IN RELATION TO TRANSFER, ANXIETY HAS LESSENED. NO C/O PAIN NO DISCOMFORT.
--- NOTE | 2025-08-15 10:55 | NUR ---
ALESIA IS A/O X4. PLEASANT AND COOPERATIVE WITH CARES. SHE REPORTS BEING NERVOUS AND AT THE SAME TIME LOOKING FORWARD TO [facility] WITH [facility]. PC WILL REMAIN AVAILABLE.
--- NOTE | 2025-08-15 14:36 | NUR ---
1430 PT TRANSFERED VIA AMBULANCE.
== END 2025-08-15 14:30 | disposition hospice, inpatient (51) | DRG 987 ==
LOC: ER 03:02 → PCU 03:03 → MEDS 08-01 14:08 → PCU 08-01 14:08 → MEDS 08-04 16:14
PROVIDERS: Emergency Medicine; Internal Medicine; Internal Medicine Gastroenterology; Student in an Organized Health Care Education/Training Program; ADMIT Internal Medicine
PROC: 0DB68ZX Excision of Stomach, Via Natural or Artificial Opening Endoscopic, Diagnostic (ICD-10-PCS; 2025-07-31)
PROC: 0DBH8ZX Excision of Cecum, Via Natural or Artificial Opening Endoscopic, Diagnostic (ICD-10-PCS; 2025-07-31)
PROC: 30233J1 Transfusion of Nonautologous Serum Albumin into Peripheral Vein, Percutaneous Approach (ICD-10-PCS; 2025-07-31)
PROC: 30233N1 Transfusion of Nonautologous Red Blood Cells into Peripheral Vein, Percutaneous Approach (ICD-10-PCS; 2025-07-31)
PROC: 0W3P8ZZ Control Bleeding in Gastrointestinal Tract, Via Natural or Artificial Opening Endoscopic (ICD-10-PCS; principal; 2025-07-31 16:00)
PROC: 3E03329 Introduction of Other Anti-infective into Peripheral Vein, Percutaneous Approach (ICD-10-PCS; 2025-07-31 16:00)
PROC: 0T768DZ Dilation of Right Ureter with Intraluminal Device, Via Natural or Artificial Opening Endoscopic (ICD-10-PCS; 2025-08-03)
PROC: BT1DZZZ Fluoroscopy of Right Kidney, Ureter and Bladder (ICD-10-PCS; 2025-08-03)
PROC: 06H03DZ Insertion of Intraluminal Device into Inferior Vena Cava, Percutaneous Approach (ICD-10-PCS; 2025-08-10)
PROC: B5191ZZ Fluoroscopy of Inferior Vena Cava using Low Osmolar Contrast (ICD-10-PCS; 2025-08-10)
DX: C78.5 Secondary malignant neoplasm of large intestine and rectum (principal); K25.4 Chronic or unspecified gastric ulcer with hemorrhage; D62 Acute posthemorrhagic anemia; E87.21 Acute metabolic acidosis; N17.9 Acute kidney failure, unspecified; Z68.41 Body mass index [BMI] 40.0-44.9, adult; I82.411 Acute embolism and thrombosis of right femoral vein; I82.433 Acute embolism and thrombosis of popliteal vein, bilateral; Z51.5 Encounter for palliative care; Z66 Do not resuscitate; I82.443 Acute embolism and thrombosis of tibial vein, bilateral; I82.453 Acute embolism and thrombosis of peroneal vein, bilateral; N13.6 Pyonephrosis; K94.01 Colostomy hemorrhage; C54.1 Malignant neoplasm of endometrium; E87.6 Hypokalemia; K43.5 Parastomal hernia without obstruction or gangrene; E66.9 Obesity, unspecified; F32.A Depression, unspecified; E86.0 Dehydration; E88.09 Other disorders of plasma-protein metabolism, not elsewhere classified; E11.65 Type 2 diabetes mellitus with hyperglycemia; B96.1 Klebsiella pneumoniae [K. pneumoniae] as the cause of diseases classified elsewhere; I95.9 Hypotension, unspecified; Z60.2 Problems related to living alone; Z90.710 Acquired absence of both cervix and uterus; Z90.79 Acquired absence of other genital organ(s); Z91.040 Latex allergy status; Z88.8 Allergy status to other drugs, medicaments and biological substances; Z90.722 Acquired absence of ovaries, bilateral; Z79.84 Long term (current) use of oral hypoglycemic drugs; Z90.49 Acquired absence of other specified parts of digestive tract; Y83.3 Surgical operation with formation of external stoma as the cause of abnormal reaction of the patient, or of later complication, without mention of misadventure at the time of the procedure
CPT/HCPCS: 36430; 51702; 71046; 74177; 76937; 80048; 80053; 80069; 81001; 82565; 82607; 82728; 82746; 82947; 83036; 83540; 83550; 83605; 83690; 83735; 83880; 84100; 84132; 84145; 85014; 85018; 85025; 85610; 86850; 86900; 86901; 86923; 87040; 87077; 87086; 87186; 87426-QW; 88305; 88342; 93005; 93010; 93970; 94760; 96375; 96376; 99152; 99285-25; A9270; C1758; C1769; C1880; C2617; G0378; J0295; J0690; J0696; J1815; J1956; J2250; J2371; J2405; J2470; J2704; J3010; J3475; J3480; J7030; J7040; J7050; J7120; P9016; P9047; Q9967